=== PATIENT | male | born 1940 | race Caucasian/White ===

== ENCOUNTER 2016-07-06 13:14 | Observation (INO) ==
[2016-07-06 14:04] LABS: Basophils % 0.3 %; Eosinophils # 0.3 K/mcL (0.0-0.6); Eosinophils % 3.1 %; Hematocrit 37.9 % (37.5-50.1); Hemoglobin 12.9 g/dL (12.9-16.9); Immature Granulocytes % 0.5 % (0-4); Lymphocytes # 1.5 K/mcL (0.6-4.6); Lymphocytes % 15.2 %; Mean Corpuscular Hemoglobin 31.7 pg (28.0-33.3); Mean Corpuscular Volume 93.1 fL (83.0-100.0); Mean Platelet Volume 9.5 fL (9.4-12.4); Monocytes # 0.9 K/mcL (0.0-1.3); Monocytes % 9.5 %; Neutrophils # 7.1 K/mcL (1.6-8.9); Platelet Count 258 K/mcL (140-400); Red Blood Count 4.07 M/mcL (4.19-5.50); Segmented Neutrophils % 71.4 %
[2016-07-06 14:14] LABS: BUN/Creatinine Ratio 16 (6-26); Blood Urea Nitrogen 16 mg/dL (8-26); Calcium 9.6 mg/dL (8.6-10.8); Carbon Dioxide 25 mEq/L (19-29); Chloride 93 mEq/L (98-109); Glucose 113 mg/dL (70-99); Osmolality,Calculated 270 (280-300); Potassium 4.2 mEq/L (3.5-4.5); Sodium 129 mEq/L (136-145); eGFR For African Americans > 60 (> 60); eGFR For Non-African Americans > 60 (> 60)
--- NOTE | 2016-07-06 15:14 | Emergency Department Note ---
Disposition Clinical Impression: Chest pain, Dyspnea Disposition: Admitted As Inpatient Condition: Good General Adult HPI - General Chief complaint: ED Shortness of Breath/Dyspnea Stated complaint: high blood pressure, LELO,nausea Time Seen by Provider: 07/06/16 15:10 Source: patient, family Limitations: no limitations - History of Present Illness Pain Scale: 0 - Related Data Home Medications Medication Instructions Recorded Confirmed Albuterol Sulfate [Ventolin Hfa] 2 puff IH Q4-6H PRN 02/25/15 07/06/16 Allopurinol [Zyloprim] 300 mg PO BID 02/25/15 07/06/16 Finasteride [Proscar] 5 mg PO DAILY 02/25/15 07/06/16 Fluticasone Propionate Nasal 2 spray NS DAILY 02/25/15 07/06/16 [Flonase] Fluticasone/Salmeterol [Advair 1 each IH BID 02/25/15 07/06/16 500-50 Diskus] Ipratropium/Albuterol Neb [Duoneb] 3 ml IH Q6HR PRN 02/25/15 07/06/16 Isosorbide MONOnitrate (24 HR) 60 mg PO QPM 02/25/15 07/06/16 [Imdur] Nitroglycerin 0.4 mg SL Q5MIN PRN 02/25/15 07/06/16 Simvastatin [Zocor] 40 mg PO HS 02/25/15 07/06/16 Amlodipine Besylate 2.5 mg PO QPM 07/06/16 07/06/16 Aspirin [Ecotrin] 325 mg PO DAILY 07/06/16 07/06/16 Desloratadine [Desloratadine] 5 mg PO DAILY 07/06/16 07/06/16 Lisinopril [Zestril] 10 mg PO QAM 07/06/16 07/06/16 Metoprolol Succinate 100 mg PO QPM 07/06/16 07/06/16 Allergies Allergy/AdvReac Type Severity Reaction Status Date / Time No Known Allergies Allergy Verified 07/06/16 13:27 Past Medical History - Past Medical History Medical history: Reports: COPD, coronary artery disease, hyperlipidemia, hypertension, other Surgical history: Reports: coronary bypass (CABG) Psychiatric history: Reports: depression - Social History Smoking Status: Former smoker Smokeless Tobacco Status: No Alcohol use: Reports: occasionally Drug use: Reports: none Physical Exam - General Limitations: no limitations General appearance: alert Course Vital Signs Temperature 97.9 F 07/06/16 13:23 Pulse Rate 74 07/06/16 13:23 Respiratory Rate 20 07/06/16 13:23 Blood Pressure 170/80 07/06/16 13:23 O2 Sat by Pulse Oximetry 97 07/06/16 13:23 Temperature 97.7 F 07/06/16 23:33 Pulse Rate 57 07/06/16 23:33 Respiratory Rate 16 07/06/16 23:33 Blood Pressure 165/79 07/06/16 23:33 O2 Sat by Pulse Oximetry 100 07/06/16 23:33 Oxygen Delivery Oxygen Delivery Nasal Cannula Medical Decision Making - Lab Data Result diagrams: 07/06/16 13:38 07/06/16 13:38 Lab Results 07/06/16 07/06/16 07/06/16 Range/Units 13:38 13:38 13:38 WBC 9.9 (4.3-11.1) K/mcL RBC 4.07 L (4.19-5.50) M/mcL Hgb 12.9 (12.9-16.9) g/dL Hct 37.9 (37.5-50.1) % MCV 93.1 (83.0-100.0) fL MCH 31.7 (28.0-33.3) pg MCHC 34.0 (31.6-35.5) g/dL RDW 12.0 (11.5-14.5) % Plt Count 258 (140-400) K/mcL MPV 9.5 (9.4-12.4) fL Immature Gran % 0.5 (0-4) % Seg Neutrophils % 71.4 % Lymphocytes % 15.2 % Monocytes % 9.5 % Eosinophils % 3.1 % Basophils % 0.3 % Neutrophils # 7.1 (1.6-8.9) K/mcL Lymphocytes # 1.5 (0.6-4.6) K/mcL Monocytes # 0.9 (0.0-1.3) K/mcL Eosinophils # 0.3 (0.0-0.6) K/mcL Basophils # 0.0 (0.0-0.2) K/mcL Sodium 129 L (136-145) mEq/L Potassium 4.2 (3.5-4.5) mEq/L Chloride 93 L (98-109) mEq/L Carbon Dioxide 25 (19-29) mEq/L BUN 16 (8-26) mg/dL Creatinine 1.02 (0.72-1.25) mg/dL Est GFR ( Amer) > 60 (> 60) Est GFR (Non-Af Amer) > 60 (> 60) BUN/Creatinine Ratio 16 (6-26) Glucose 113 H (70-99) mg/dL Calculated Osmolality 270 L (280-300) Calcium 9.6 (8.6-10.8) mg/dL Troponin I 0.02 (0-0.03) ng/mL B-Natriuretic Peptide (0-100) pg/mL 07/06/16 Range/Units 13:38 WBC (4.3-11.1) K/mcL RBC (4.19-5.50) M/mcL Hgb (12.9-16.9) g/dL Hct (37.5-50.1) % MCV (83.0-100.0) fL MCH (28.0-33.3) pg MCHC (31.6-35.5) g/dL RDW (11.5-14.5) % Plt Count (140-400) K/mcL MPV (9.4-12.4) fL Immature Gran % (0-4) % Seg Neutrophils % % Lymphocytes % % Monocytes % % Eosinophils % % Basophils % % Neutrophils # (1.6-8.9) K/mcL Lymphocytes # (0.6-4.6) K/mcL Monocytes # (0.0-1.3) K/mcL Eosinophils # (0.0-0.6) K/mcL Basophils # (0.0-0.2) K/mcL Sodium (136-145) mEq/L Potassium (3.5-4.5) mEq/L Chloride (98-109) mEq/L Carbon Dioxide (19-29) mEq/L BUN (8-26) mg/dL Creatinine (0.72-1.25) mg/dL Est GFR ( Amer) (> 60) Est GFR (Non-Af Amer) (> 60) BUN/Creatinine Ratio (6-26) Glucose (70-99) mg/dL Calculated Osmolality (280-300) Calcium (8.6-10.8) mg/dL Troponin I (0-0.03) ng/mL B-Natriuretic Peptide 536 H (0-100) pg/mL Attestation Statement - Attestation Attestation: I examined this patient and my medical decision-making was reviewed with the LIDAR SCIENTIST/PA/Advanced Practice Nurse/Resident Physician. I agree with the documented findings, disposition and treatment plan as described except to the extent set forth below. [id number] time provided Patient complains of hypertension. He has a history of chronic hypertension. He has been compliant with his medications. He also notes dyspnea in the setting of home oxygen dependency. The daughter also notes he has been "jittery." The patient required assistance to transfer from the wheelchair to the bed. He appears in no acute respiratory distress. Labs and EKG reviewed by me
--- NOTE | 2016-07-06 15:50 | Emergency Department Note ---
Disposition Clinical Impression: Chest pain Qualifiers: Chest pain type: unspecified Qualified Code(s): R07.9 - Chest pain, unspecified Dyspnea Qualifiers: Dyspnea type: unspecified Qualified Code(s): R06.00 - Dyspnea, unspecified Disposition: Admitted As Inpatient Condition: Good Referrals: Bhavani King CNP [Primary Care Provider] - Forms: ED Satisfaction Letter General Adult HPI - General Chief complaint: ED Shortness of Breath/Dyspnea Stated complaint: high blood pressure, LELO,nausea Time Seen by Provider: 07/06/16 15:10 Source: patient, family Limitations: no limitations Nursing Notes Reviewed: Yes Vital Signs Reviewed: Yes - History of Present Illness HPI Narrative: Patient here for evaluation of dyspnea and chest pain. Patient states that he started feeling "bad" beginning on Tuesday with described heaviness in the chest as well as in the pit of his stomach. This is continued into today and been associated with shortness of breath and nausea. Patient has been monitoring his blood pressures over the last several days with blood pressures elevating to 201/91. He states that his lisinopril which had been 10 mg of the last year had been 5 mg until 2 days previously because he was taking an old prescription unintentionally. Former smoker. Quit in the s. COPD on 2 L of home oxygen [place] in 1995 requiring single bypass and has been followed continuously by Dr. Dangelo with last left heart catheter approximately 1-1/2 years ago. Pain Scale: 5 - Related Data Home Medications Medication Instructions Recorded Confirmed Albuterol Sulfate [Ventolin Hfa] 2 puff IH Q4-6H PRN 02/25/15 07/06/16 Allopurinol [Zyloprim] 300 mg PO BID 02/25/15 07/06/16 Finasteride [Proscar] 5 mg PO DAILY 02/25/15 07/06/16 Fluticasone Propionate Nasal 2 spray NS DAILY 02/25/15 07/06/16 [Flonase] Fluticasone/Salmeterol [Advair 1 each IH BID 02/25/15 07/06/16 500-50 Diskus] Ipratropium/Albuterol Neb [Duoneb] 3 ml IH Q6HR PRN 02/25/15 07/06/16 Isosorbide MONOnitrate (24 HR) 60 mg PO QPM 02/25/15 07/06/16 [Imdur] Nitroglycerin 0.4 mg SL Q5MIN PRN 02/25/15 07/06/16 Simvastatin [Zocor] 40 mg PO HS 02/25/15 07/06/16 Amlodipine Besylate 2.5 mg PO QPM 07/06/16 07/06/16 Aspirin [Ecotrin] 325 mg PO DAILY 07/06/16 07/06/16 Desloratadine [Desloratadine] 5 mg PO DAILY 07/06/16 07/06/16 Lisinopril [Zestril] 10 mg PO QAM 07/06/16 07/06/16 Metoprolol Succinate 100 mg PO QPM 07/06/16 07/06/16 Allergies Allergy/AdvReac Type Severity Reaction Status Date / Time No Known Allergies Allergy Verified 07/06/16 13:27 All systems ED: reviewed and negative except as stated. Constitutional: Denies: fever, chills Eyes: Denies: eye pain Cardiovascular: Reports: chest pain, dyspnea on exertion Respiratory: Reports: dyspnea Gastrointestinal: Reports: nausea Past Medical History - Past Medical History Medical history: Reports: COPD, coronary artery disease, hyperlipidemia, hypertension, other Surgical history: Reports: coronary bypass (CABG) Psychiatric history: Reports: depression - Social History Smoking Status: Former smoker Smokeless Tobacco Status: No Alcohol use: Reports: occasionally Drug use: Reports: none Physical Exam - General Limitations: no limitations General appearance: alert - Head Head exam: atraumatic, normocephalic - Eye Eye exam: Present: normal appearance - ENT ENT exam: normal exam, normal oropharynx - Neck Neck exam: Present: normal inspection - Chest Chest inspection: Present: normal inspection, symmetric chest wall rise. Absent : tenderness - Respiratory Respiratory exam: Present: other (rales). Absent: respiratory distress - Cardiovascular Cardiovascular exam: Present: regular rate, normal rhythm - Abdominal Exam Abdominal exam: Present: soft, Non-Tender - Extremities Exam Extremities exam: Present: normal inspection. Absent: tenderness, pedal edema - Neurological Exam Neurological exam: Present: alert, oriented X3. Absent: motor sensory deficit - Psychiatric Psychiatric exam: Present: normal affect, normal mood - Skin Skin exam: Present: warm, dry Course Course Narrative: Patient with chest heaviness and exertional dyspnea in the setting of lateral EKG changes consisting of depressions approximately 1 mm and 1, aVL, V5, V6. This time there is no evidence of pneumonia or infectious cause. Patient will be given sublingual nitroglycerin to evaluate for response as well as to decrease blood pressure. Patient will be admitted to the hospital service - Reevaluation(s) Reevaluation #1: Pressure resolved after nitroglycerin and EKG changes partially resolved on repeat with depression remaining in v5 and V6 as well as T-wave changes in inferior leads.. - Consultations Consultation #1: Dr. Camp, cardiology consulted. Chest pressure resolved with nitro. Hold anticoagulation at this point. If pressure returns or troponin is elevated, anticoagulation can be initiated at this time. Consultation #2: Discussed with hospitalist. Pt accepted pending cardiology consult and nitro trial. Vital Signs Temperature 97.9 F 07/06/16 13:23 Pulse Rate 74 07/06/16 13:23 Respiratory Rate 20 07/06/16 13:23 Blood Pressure 170/80 07/06/16 13:23 O2 Sat by Pulse Oximetry 97 07/06/16 13:23 Temperature 97.9 F 07/06/16 13:23 Pulse Rate 58 07/06/16 16:52 Respiratory Rate 18 07/06/16 16:52 Blood Pressure 173/84 07/06/16 16:52 O2 Sat by Pulse Oximetry 95 07/06/16 16:52 Oxygen Delivery Oxygen Delivery Nasal Cannula Medical Decision Making - Medical Records Medical records reviewed: Yes I reviewed the patient's medical records. - Lab Data Lab results reviewed: Yes I reviewed the patient's lab results. Result diagrams: 07/06/16 13:38 07/06/16 13:38 Lab Results 07/06/16 07/06/16 07/06/16 Range/Units 13:38 13:38 13:38 WBC 9.9 (4.3-11.1) K/mcL RBC 4.07 L (4.19-5.50) M/mcL Hgb 12.9 (12.9-16.9) g/dL Hct 37.9 (37.5-50.1) % MCV 93.1 (83.0-100.0) fL MCH 31.7 (28.0-33.3) pg MCHC 34.0 (31.6-35.5) g/dL RDW 12.0 (11.5-14.5) % Plt Count 258 (140-400) K/mcL MPV 9.5 (9.4-12.4) fL Immature Gran % 0.5 (0-4) % Seg Neutrophils % 71.4 % Lymphocytes % 15.2 % Monocytes % 9.5 % Eosinophils % 3.1 % Basophils % 0.3 % Neutrophils # 7.1 (1.6-8.9) K/mcL Lymphocytes # 1.5 (0.6-4.6) K/mcL Monocytes # 0.9 (0.0-1.3) K/mcL Eosinophils # 0.3 (0.0-0.6) K/mcL Basophils # 0.0 (0.0-0.2) K/mcL Sodium 129 L (136-145) mEq/L Potassium 4.2 (3.5-4.5) mEq/L Chloride 93 L (98-109) mEq/L Carbon Dioxide 25 (19-29) mEq/L BUN 16 (8-26) mg/dL Creatinine 1.02 (0.72-1.25) mg/dL Est GFR ( Amer) > 60 (> 60) Est GFR (Non-Af Amer) > 60 (> 60) BUN/Creatinine Ratio 16 (6-26) Glucose 113 H (70-99) mg/dL Calculated Osmolality 270 L (280-300) Calcium 9.6 (8.6-10.8) mg/dL Troponin I 0.02 (0-0.03) ng/mL B-Natriuretic Peptide (0-100) pg/mL 07/06/16 Range/Units 13:38 WBC (4.3-11.1) K/mcL RBC (4.19-5.50) M/mcL Hgb (12.9-16.9) g/dL Hct (37.5-50.1) % MCV (83.0-100.0) fL MCH (28.0-33.3) pg MCHC (31.6-35.5) g/dL RDW (11.5-14.5) % Plt Count (140-400) K/mcL MPV (9.4-12.4) fL Immature Gran % (0-4) % Seg Neutrophils % % Lymphocytes % % Monocytes % % Eosinophils % % Basophils % % Neutrophils # (1.6-8.9) K/mcL Lymphocytes # (0.6-4.6) K/mcL Monocytes # (0.0-1.3) K/mcL Eosinophils # (0.0-0.6) K/mcL Basophils # (0.0-0.2) K/mcL Sodium (136-145) mEq/L Potassium (3.5-4.5) mEq/L Chloride (98-109) mEq/L Carbon Dioxide (19-29) mEq/L BUN (8-26) mg/dL Creatinine (0.72-1.25) mg/dL Est GFR ( Amer) (> 60) Est GFR (Non-Af Amer) (> 60) BUN/Creatinine Ratio (6-26) Glucose (70-99) mg/dL Calculated Osmolality (280-300) Calcium (8.6-10.8) mg/dL Troponin I (0-0.03) ng/mL B-Natriuretic Peptide 536 H (0-100) pg/mL - Radiology Data Radiology results reviewed: Yes I reviewed the patient's radiology results. - EKG Data EKG #1 EKG attestation: Yes I reviewed and interpreted this EKG. EKG results narrative: EKG shows sinus rhythm with first-degree AV block. Patient has a ventricular rate of 69 bpm. CA interval 246. QRS 107. QTC 404. Patient has no significant ST elevations. Patient does have significant depressions in the lateral leads including 1, aVL, V5, V6. Patient has associated inferior lead T- wave changes. All compared to 02/26/15.
[2016-07-06] MEDS: Nitroglycerin 0.4 MG TAB.SUBL SL PRN ×3 (16:19→16:32)
[2016-07-06] MEDS ORDERED: Ondansetron 4 MG/2 ML VIAL IVP ONE (16:21)
[2016-07-06] MEDS ORDERED: Nitroglycerin 1 INCH/GM PACKET TP ONE (17:00)
[2016-07-06] MEDS ORDERED: 0.9 % Sodium Chloride 1,000 ML IV ONE (17:02)
[2016-07-06] MEDS ORDERED: Aspirin 81 MG TAB.CHEW PO ONE (17:04)
[2016-07-06] MEDS ORDERED: Ondansetron 4 MG/2 ML VIAL IVP PRN (17:42)
[2016-07-06] MEDS ORDERED: Naloxone 0.4 MG/ML INJ IVP PRN (17:42)
[2016-07-06] MEDS ORDERED: Acetaminophen 325 MG TABLET PO PRN (17:42)
[2016-07-06] MEDS ORDERED: Ipratropium/Albuterol Neb 3 ML IH PRN (18:53)
[2016-07-06] MEDS ORDERED: Nitroglycerin 25 MG/250 ML INFUS..BTL IVC SCH (19:00)
--- NOTE | 2016-07-06 19:03 | Internal Med History&Physical ---
Date of Encounter: 07/06/16 Time of Encounter: 18:58 Assessment and Plan (1) Hypertensive urgency Current visit: Yes Status: Acute Likely contributing to symptoms. Systolic Blood pressure and emergency room running between 150 and 180 mmHg. We will start the patient on nitroglycerin drip. Continue home blood pressure medications. Check renal Doppler. Add a diuretic cause of uncontrolled hypertension. Patient is hyponatremia can his sodium has to be monitored while he is on a diuretic on discharge (2) COPD (chronic obstructive pulmonary disease) Current visit: Yes Status: Acute Stable no active wheezing. Qualifiers: Qualified Code(s): J44.9 - Chronic obstructive pulmonary disease, unspecified (3) Epigastric pain Current visit: Yes Status: Acute Patient is having EKG changes in the form of infero lateral ST segment depression 1 mm. He will be started on nitroglycerin drip. Cardiology service has been contacted and would like to load of heparin drip for now as the patient is pain-free and EKG changes resolved with nitro. If the patient has a recurrence of pain or elevated troponin heparin drip will be started. Appreciate cardiology service recommendations. Patient is denying any GI bleeding. Hemoglobin at baseline. Internal Medicine - H&P: HPI Chief complaint: htn, nausea and epigastric pain History of present illness: Mr. Heck is a 76 year old male with multiple medical problems including coronary artery disease status post cabg in 1995, who had a coronary angiogram one and a half year ago which showed paten GA to LAD presents to emergency room today with a main complain of nausea and upper abdominal discomfort. On Tuesday patient has not been feeling well, noted that he feels nauseous fatigued and more short of breath then usual, especially with exertion. Today patient has checked his blood pressure multiple times and chi continuously elevated. He has been feeling nauseous in addition to discomfort in his epigastric area. He has been more short of breath then usual. He denied any chest pain. He denies any hematemesis melena or hematochezia. He has COPD on 2 L of oxygen but denies any increase cough sputum production. No fevers chills. And emergency room patient systolic blood pressure was constantly elevated up to 180 systolic. Past Med Surg Social Fam HX - Past Medical History Medical history: COPD, coronary artery disease, hyperlipidemia, hypertension, other Psychiatric history: depression - Past Surgical History Surgical History: coronary bypass (CABG) - Social History Smoking Status: Former smoker Smokeless Tobacco Status: No Alcohol use: occasionally Drug use: none Internal Medicine - H&P: Meds Albuterol Sulfate [Ventolin Hfa] 2 puff IH Q4-6H PRN 02/25/15 [History] Allopurinol [Zyloprim] 300 mg PO BID 02/25/15 [History] Finasteride [Proscar] 5 mg PO DAILY 02/25/15 [History] Fluticasone Propionate Nasal [Flonase] 2 spray NS DAILY 02/25/15 [History] Fluticasone/Salmeterol [Advair 500-50 Diskus] 1 each IH BID 02/25/15 [History] Ipratropium/Albuterol Neb [Duoneb] 3 ml IH Q6HR PRN 02/25/15 [History] Isosorbide MONOnitrate (24 HR) [Imdur] 60 mg PO QPM 02/25/15 [History] Nitroglycerin 0.4 mg SL Q5MIN PRN 02/25/15 [History] Simvastatin [Zocor] 40 mg PO HS 02/25/15 [History] Amlodipine Besylate 2.5 mg PO QPM 07/06/16 [History] Aspirin [Ecotrin] 325 mg PO DAILY 07/06/16 [History] Desloratadine [Desloratadine] 5 mg PO DAILY 07/06/16 [History] Lisinopril [Zestril] 10 mg PO QAM 07/06/16 [History] Metoprolol Succinate 100 mg PO QPM 07/06/16 [History] Allergies No Known Allergies Allergy (Verified 07/06/16 13:27) All Systems PM: A 10-system review of systems was performed and is negative for pertinent findings except as documented above in the HPI. Review of systems: 10 point review of systems is negative except for HPI - Constitutional Vitals: Temp Pulse Resp BP Pulse Ox 97.9 F 57 18 179/92 95 07/06/16 13:23 07/06/16 17:05 07/06/16 17:30 07/06/16 17:30 07/06/16 16:52 Exam: Gen.: patient is alert and oriented times 3 not in distress. Cardiac: normal S1 S2 no additional sounds or murmur. Chest: Clear auscultation bilaterally abdomen: soft nontender nondistended normal bowel sounds no focal neurological deficits lower extremity lax calf muscles no swelling Internal Med - H&P Results - Labs CBC & Chem 7: 07/06/16 13:38 07/06/16 13:38
[2016-07-06] MEDS ORDERED: Budesonide/Formoterol 160/4.5 MDI IH SCH (22:00)
[2016-07-07] MEDS: *HR* Enoxaparin 40 MG/0.4 ML SYRINGE SQ SCH (06:22)
[2016-07-07 06:23] LABS: Basophils % 0.4 %; Eosinophils # 0.2 K/mcL (0.0-0.6); Eosinophils % 3.3 %; Hematocrit 35.6 % (37.5-50.1); Hemoglobin 12.1 g/dL (12.9-16.9); Immature Granulocytes % 0.4 % (0-4); Lymphocytes # 1.6 K/mcL (0.6-4.6); Lymphocytes % 23.1 %; Mean Corpuscular Hemoglobin 31.8 pg (28.0-33.3); Mean Corpuscular Volume 93.4 fL (83.0-100.0); Mean Platelet Volume 9.7 fL (9.4-12.4); Monocytes # 0.8 K/mcL (0.0-1.3); Monocytes % 11.9 %; Neutrophils # 4.3 K/mcL (1.6-8.9); Platelet Count 219 K/mcL (140-400); Red Blood Count 3.81 M/mcL (4.19-5.50); Red Cell Distribution Width 12.1 % (11.5-14.5); Segmented Neutrophils % 60.9 %
[2016-07-07 06:36] LABS: BUN/Creatinine Ratio 18 (6-26); Blood Urea Nitrogen 18 mg/dL (8-26); Calcium 9.1 mg/dL (8.6-10.8); Carbon Dioxide 25 mEq/L (19-29); Chloride 97 mEq/L (98-109); Chol/HDL Ratio 2.1 (0-4.9); Cholesterol 175 mg/dL (< 200); Glucose 78 mg/dL (70-99); HDL Cholesterol 85 mg/dL (40-59); LDL Cholesterol,Calculated 74 mg/dL (0-99); Magnesium 1.4 mg/dL (1.6-2.6); Osmolality,Calculated 277 (280-300); Phosphorous 3.5 mg/dL (2.3-4.7); Potassium 4.5 mEq/L (3.5-4.5); Sodium 133 mEq/L (136-145); Triglycerides 80 mg/dL (< 150); eGFR For African Americans > 60 (> 60); eGFR For Non-African Americans > 60 (> 60)
[2016-07-07] MEDS: Finasteride 5 MG TABLET PO SCH (09:03)
[2016-07-07] MEDS: Aspirin Enteric Coated 325 MG Tablet PO SCH (09:03)
[2016-07-07] MEDS: Fluticasone Propionate Nasal 50 MCG/SPRAY BOTTLE NS SCH (09:03)
[2016-07-07] MEDS ORDERED: amLODIPine 5 MG TABLET PO SCH (09:15)
--- NOTE | 2016-07-07 10:13 | Internal Med Progress Note ---
<Ray Coreas - Last Filed: 07/07/16 10:57> Date of Encounter: 07/07/16 Time of Encounter: 09:48 - Assessment and plan (1) Chest pain Current Visit: Yes Status: Resolved Assessment and plan: 76 y/o M hx of ND in 1965 and s/p CABG single vessel, C 02/2015 shows patent bypass graft GA to LAD, Echo 2014 EF is 35-40%. Patient presented with hypertensive urgery BP of 200/90. -intial ST depressions in leads 1,avL,V5,V6 improved with nitroglycerin. Troponin 0.02,0.02,.0.03 -patient on aspirin statin and b-toni, nitro drip, lisinopril -CP resolved after nitro administration -BP currently 164/75 -Plan is to restart home amlodipine and imdur and wean off nitro drip, repeat echo, renal US ordered -cardiology input appreciated Qualifiers: Chest pain type: unspecified Qualified Code(s): R07.9 - Chest pain, unspecified (2) Hypertensive urgency Current Visit: Yes Status: Acute Assessment and plan: Patient presented with BP systolic 180. Stated at home BP was systolic 200. He was started on nitroglycerin drip. -Current BP is 160/70. We have restarted lisinopril and amlodipine. Will wean off of nitro drip with BP goal of 140/90. Will restart imdur after nitro drip is weaned. (3) COPD (chronic obstructive pulmonary disease) Current Visit: Yes Status: Chronic Assessment and plan: hx of COPD, former smoker. patient on 2L O2 at home. Continue home symbicort and oxygen supplementation. Patient denies sob, cough. Qualifiers: COPD type: emphysema Emphysema type: unspecified Qualified Code(s): J43.9 - Emphysema, unspecified (4) DVT prophylaxis Current Visit: No Status: Acute (5) Hyperlipidemia Current Visit: No Status: Chronic Assessment and plan: hx of HLD, continue home simvastatin. LDL is 74. Qualifiers: Hyperlipidemia type: pure hypercholesterolemia Qualified Code(s): E78.00 - Pure hypercholesterolemia, unspecified; E78.0 - Pure hypercholesterolemia - Subjective Interval history: 76 y/o M hx of single bypass 1995, ND 1995, CAD, HLD, COPD, former smoker HTN presented with cc of hypertension. Patient blood pressure for the past few days was 201/90. He takes lisinopril, and amlodipine for BP control. However, patient ran out of his lisinopril and started using an old prescription of lisinopril 5mg. Initial EKG showed depressions 1mm in leads 1,aVL,V5,V6. He was given nitroglycerin SL. BP resolved after nitroglycerin and repeat EKG showed resolutionof depressions except in V5 and V6 and t-wave changes in inferior leads. Cardiology recommended holding anticoagulation as CP resolved with nitro and troponin were normal. Patient was started on nitro drip and home medications lisinopril for BP control. During my visit, patient does not have any chest pain, nausea. His BP is 160s systolic currently - Constitutional Vitals: Temp Pulse Resp BP Pulse Ox 97.9 F 63 16 164/75 100 07/07/16 07:08 07/07/16 07:08 07/07/16 07:08 07/07/16 07:08 07/07/16 07:08 General appearance: Present: A&O X 3, answers questions appropriately - Head Head exam: Present: atraumatic, normocephalic - Eye Eye exam: Present: PERRL, conjuntiva pink, sclera anicteric - Neck Neck exam general surgery: Present: supple, trachea midline. Absent: lymphadenopathy - Respiratory Respiratory exam: Present: CTAB. Absent: accessory muscle use, rales, rhonchi, wheezes - Cardiovascular Cardiovascular exam: Present: RRR, +S1, +S2. Absent: diastolic murmur, gallop, rubs, systolic murmur - GI/Abdominal GI/Abdominal exam: Present: normal bowel sounds, soft, no peritoneal signs. Absent: distended, tenderness - Extremities Exam Extremities exam: Present: warm, radial pulses palpable and symetrical. Absent : calf tenderness, cyanotic, pedal edema - Neurological Exam Neurological exam: Present: CN II-XII intact, oriented X3, no focal deficits. Absent: pronater drift, facial droop, speech deficit - Skin Skin exam: Present: dry, intact Internal Medicine: Result - Labs CBC & Chem 7: 07/07/16 04:59 07/07/16 04:59 Labs: Short CBC 07/07/16 Range/Units 04:59 WBC 7.1 (4.3-11.1) K/mcL Hgb 12.1 L (12.9-16.9) g/dL Hct 35.6 L (37.5-50.1) % Plt Count 219 (140-400) K/mcL Neutrophils # 4.3 (1.6-8.9) K/mcL BMP 07/07/16 04:59 Sodium 133 L Potassium 4.5 Chloride 97 L Carbon Dioxide 25 BUN 18 Creatinine 1.00 Glucose 78 Calcium 9.1 Cardiac Enzymes 07/06/16 07/07/16 Range/Units 19:45 04:59 Troponin I 0.02 0.02 (0-0.03) ng/mL Consult Discharge Plan - Plan Referrals: Bhavani King, [employer] [Primary Care Provider] - <Jomar Wilsno - Last Filed: 07/07/16 14:15> Date of Encounter: 07/07/16 - Assessment and plan (1) Hypertensive urgency Current Visit: Yes Status: Acute (2) Chest pain Current Visit: Yes Status: Resolved Qualifiers: Chest pain type: precordial pain Qualified Code(s): R07.2 - Precordial pain (3) Chronic respiratory failure with hypoxia Current Visit: Yes Status: Chronic (4) COPD (chronic obstructive pulmonary disease) Current Visit: Yes Status: Acute Qualifiers: COPD type: emphysema Emphysema type: unspecified Qualified Code(s): J43.9 - Emphysema, unspecified (5) Hyperlipidemia Current Visit: No Status: Chronic Qualifiers: Hyperlipidemia type: pure hypercholesterolemia Qualified Code(s): E78.00 - Pure hypercholesterolemia, unspecified; E78.0 - Pure hypercholesterolemia (6) CAD (coronary artery disease) Current Visit: Yes Status: Chronic Qualifiers: Coronary Disease-Associated Artery/Lesion type: [place] artery [place] vs. transplanted heart: [place] heart Associated angina: without angina Qualified Code(s): I25.10 - Atherosclerotic heart disease of [place] coronary artery without angina pectoris (7) Chronic systolic (congestive) heart failure Current Visit: Yes Status: Chronic - Constitutional Vitals: Temp Pulse Resp BP Pulse Ox 98.4 F 67 16 161/100 100 07/07/16 12:05 07/07/16 12:05 07/07/16 12:05 07/07/16 12:05 07/07/16 12:05 Internal Medicine: Result - Labs CBC & Chem 7: 07/07/16 04:59 07/07/16 04:59 Labs: Short CBC 07/07/16 Range/Units 04:59 WBC 7.1 (4.3-11.1) K/mcL Hgb 12.1 L (12.9-16.9) g/dL Hct 35.6 L (37.5-50.1) % Plt Count 219 (140-400) K/mcL Neutrophils # 4.3 (1.6-8.9) K/mcL BMP 07/07/16 04:59 Sodium 133 L Potassium 4.5 Chloride 97 L Carbon Dioxide 25 BUN 18 Creatinine 1.00 Glucose 78 Calcium 9.1 Cardiac Enzymes 07/06/16 07/07/16 Range/Units 19:45 04:59 Troponin I 0.02 0.02 (0-0.03) ng/mL - Attending Attestation I examined this patient and my medical decision-making was reviewed with the Resident Physician on 07/07/16. I agree with the documented findings, disposition and treatment plan as described except to the extent set forth below. Mr Heck is currently in observation for hypertensive emergency. He is currently high risk due to potential for worsening cardiac, respiratory and neurologic issues. Mr. Heck feels OK at this time though his BP is still elevated and he is on nitro drip. He denies CP or worsening dyspnea currently. Appetite OK. No fever. Exam Alert. Comfortable Heart reg No wheeze No edema I/P 1. Hypertensive urgency - restart meds and wean off nitro as able. 2. Chest pain - appreciate cardiology input. 3. COPD with chronic hypoxic resp failure 4. CAD s/p ND and CABG Further diagnoses and plan as above.
[2016-07-07] MEDS: Furosemide 40 MG TABLET PO SCH (17:24)
[2016-07-07] MEDS ORDERED: Isosorbide MONOnitrate (24 HR) 60 MG TAB.ER.24H PO SCH (18:00)
[2016-07-07] MEDS ORDERED: AMLODIPINE BESYLATE 2.5 MG PO SCH (18:00)
[2016-07-07] MEDS ORDERED: Metoprolol XL (24 HR) Succ 50 MG TAB.ER.24H PO SCH (18:00)
[2016-07-08 05:18] LABS: Hematocrit 37.5 % (37.5-50.1); Hemoglobin 12.7 g/dL (12.9-16.9); Mean Corpuscular HGB Conc 33.9 g/dL (31.6-35.5); Mean Corpuscular Hemoglobin 32.1 pg (28.0-33.3); Mean Corpuscular Volume 94.7 fL (83.0-100.0); Platelet Count 201 K/mcL (140-400); Red Blood Count 3.96 M/mcL (4.19-5.50); Red Cell Distribution Width 11.9 % (11.5-14.5)
[2016-07-08 05:50] LABS: BUN/Creatinine Ratio 17 (6-26); Blood Urea Nitrogen 18 mg/dL (8-26); Calcium 9.4 mg/dL (8.6-10.8); Carbon Dioxide 23 mEq/L (19-29); Chloride 97 mEq/L (98-109); Glucose 90 mg/dL (70-99); Osmolality,Calculated 275 (280-300); Sodium 132 mEq/L (136-145); eGFR For African Americans > 60 (> 60); eGFR For Non-African Americans > 60 (> 60)
[2016-07-08 06:07] LABS: Potassium 4.4 mEq/L (3.5-4.5)
[2016-07-08] MEDS ORDERED: amLODIPine 5 MG TABLET PO SCH (06:51)
[2016-07-08] MEDS: *HR* Enoxaparin 40 MG/0.4 ML SYRINGE SQ SCH (06:57)
[2016-07-08] MEDS: Finasteride 5 MG TABLET PO SCH (07:56)
[2016-07-08] MEDS: Aspirin Enteric Coated 325 MG Tablet PO SCH (07:56)
[2016-07-08] MEDS: Furosemide 40 MG TABLET PO SCH (07:57)
[2016-07-08] MEDS: Fluticasone Propionate Nasal 50 MCG/SPRAY BOTTLE NS SCH (07:57)
[2016-07-08] MEDS ORDERED: Furosemide 40 MG TABLET PO SCH (09:00)
--- NOTE | 2016-07-08 09:17 | Discharge Summary ---
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 At home his blood pressure was measuring 201/90. Furthermore he had associated nausea, shortness of breath, chest pain. In the emergency room patient's EKG showed depressions of 1 mm in leads 1, aVL, V5, V6. He was given nitroglycerin sublingual which lowered his blood pressure to 160/80 and repeat EKG showed resolution of ST depressions. Cardiology was called by ER and recommended holding anticoagulation as CP had resolved with nitro and troponin were normal. He was started on nitro drip to control his BP. He was also started on aspirin, statin, bblocker, lisinopril. Patient denied CP, sob, dizziness, nauea. Next day patient BP still was elevated at 164/70s while on the nitro drip. Patient was started on Amlodipine 5mg and given one time dose of lasix 40mg. Next morning patient BP was 140/77 off of the nitroglycerin drip. His amlodipine was increased to 10mg. As patient BP was under control, he was stable for discharge. He should follow up with cardiology and PCP after discharge. Patient discharge BP medications include: lisinopril 10mg, amlodipine 10mg. Original Note: <Ray Coreas - Last Filed: 07/08/16 09:14> Date of Encounter: 07/08/16 Time of Encounter: 09:14 - Discharge Diagnosis (1) Chest pain Priority: Primary Status: Resolved Qualifiers: Chest pain type: precordial pain Qualified Code(s): R07.2 - Precordial pain (2) Hypertensive urgency Priority: Secondary Status: Resolved (3) COPD (chronic obstructive pulmonary disease) Priority: Secondary Status: Chronic Qualifiers: COPD type: emphysema Emphysema type: unspecified Qualified Code(s): J43.9 - Emphysema, unspecified (4) DVT prophylaxis Priority: Secondary Status: Acute (5) Hyperlipidemia Status: Chronic Qualifiers: Hyperlipidemia type: pure hypercholesterolemia Qualified Code(s): E78.00 - Pure hypercholesterolemia, unspecified; E78.0 - Pure hypercholesterolemia - Discharge Medications Prescriptions: Amlodipine [Norvasc] 10 mg PO DAILY #30 tablet Home Medications: Albuterol Sulfate [Ventolin Hfa] 2 puff IH Q4-6H PRN 02/25/15 [History] Allopurinol [Zyloprim] 300 mg PO BID 02/25/15 [History] Finasteride [Proscar] 5 mg PO DAILY 02/25/15 [History] Fluticasone Propionate Nasal [Flonase] 2 spray NS DAILY 02/25/15 [History] Fluticasone/Salmeterol [Advair 500-50 Diskus] 1 each IH BID 02/25/15 [History] Ipratropium/Albuterol Neb [Duoneb] 3 ml IH Q6HR PRN 02/25/15 [History] Isosorbide MONOnitrate (24 HR) [Imdur] 60 mg PO QPM 02/25/15 [History] Nitroglycerin 0.4 mg SL Q5MIN PRN 02/25/15 [History] Simvastatin [Zocor] 40 mg PO HS 02/25/15 [History] Aspirin [Ecotrin] 325 mg PO DAILY 07/06/16 [History] Desloratadine 5 mg PO DAILY 07/06/16 [History] Lisinopril [Zestril] 10 mg PO QAM 07/06/16 [History] Metoprolol Succinate 100 mg PO QPM 07/06/16 [History] Amlodipine [Norvasc] 10 mg PO DAILY #30 tablet 07/08/16 [Rx] Allergies/Adverse Reactions: Allergies No Known Allergies Allergy (Verified 07/06/16 13:27) Procedures/tests Complete & Pending: Procedures Performed prior 72 hours Category Date Time Status ECG 12 lead ECG [ECG] AM 0600 Y 07/07/16 06:00 Ordered ECG 12 lead ECG [ECG] Routine Y 07/06/16 16:39 Completed EV echocardiogram Routine Y 07/07/16 09:19 Completed Date of admission: 07/06/16 17:22 Primary care physician: Bhavani King CNP Discharging clinician: Ray Coreas Anticipated date of discharge: 07/08/16 - Patient Status Disposition: Home, Self-Care Condition: Good Functional capacity at discharge: uses cane/walker Overall status at discharge: patient is progressing back to baseline - Discharge Instructions Instructions: Heart Failure (DC), Chest Pain (DC), Chronic Obstructive Pulmonary Disease (DC), Chronic Hypertension (DC) Follow Up With: Bhavani King CNP [Primary Care Provider] - 07/13/16 11:00 am Gurvinder Dangelo MD [Partnered Physician] - 07/21/16 (Keep follow up appaointment as scheduled) - Diet and Activity Activity: increase activity as tolerated, wear oxygen at all times Diet: low fat, low cholesterol, low salt diet Hospital course: Mr. Heck is a 76 year old male - Time Spent with Patient Total time spent providing and/or coordinating discharge services: - Constitutional Vitals: Temp Pulse Resp BP Pulse Ox 97.9 F 72 16 167/96 92 L 07/08/16 07:00 07/08/16 07:00 07/08/16 07:00 07/08/16 07:00 07/08/16 07:00 General appearance: Present: A&O X 3, answers questions appropriately - Head Head exam: Present: atraumatic, normocephalic - Eye Eye exam: Present: PERRL, conjuntiva pink, sclera anicteric Pupils: Present: PERRL - Neck Neck exam general surgery: Present: supple, trachea midline. Absent: lymphadenopathy - Respiratory Respiratory exam: Present: CTAB. Absent: accessory muscle use, rales, rhonchi, wheezes - Cardiovascular Cardiovascular exam: Present: RRR, +S1, +S2. Absent: diastolic murmur, gallop, rubs, systolic murmur - GI/Abdominal GI/Abdominal exam: Present: normal bowel sounds, soft, no peritoneal signs. Absent: distended, tenderness - Extremities Exam Extremities exam: Present: warm, radial pulses palpable and symetrical. Absent : calf tenderness, cyanotic, pedal edema - Neurological Exam Neurological exam: Present: CN II-XII intact, oriented X3, no focal deficits. Absent: pronater drift, facial droop, speech deficit - Skin Skin exam: Present: dry, intact <Jomar Wilson - Last Filed: 07/08/16 12:53> Date of Encounter: 07/08/16 - Discharge Diagnosis (1) Hypertensive urgency Status: Resolved (2) Chest pain Status: Resolved Qualifiers: Chest pain type: precordial pain Qualified Code(s): R07.2 - Precordial pain (3) Chronic respiratory failure with hypoxia Priority: Secondary Status: Chronic (4) COPD (chronic obstructive pulmonary disease) Priority: Secondary Status: Acute Qualifiers: COPD type: emphysema Emphysema type: unspecified Qualified Code(s): J43.9 - Emphysema, unspecified (5) Hyperlipidemia Priority: Secondary Status: Chronic Qualifiers: Hyperlipidemia type: pure hypercholesterolemia Qualified Code(s): E78.00 - Pure hypercholesterolemia, unspecified; E78.0 - Pure hypercholesterolemia (6) CAD (coronary artery disease) Priority: Secondary Status: Chronic Qualifiers: Coronary Disease-Associated Artery/Lesion type: [place] artery [place] vs. transplanted heart: [place] heart Associated angina: without angina Qualified Code(s): I25.10 - Atherosclerotic heart disease of [place] coronary artery without angina pectoris (7) Chronic systolic (congestive) heart failure Priority: Secondary Status: Chronic Procedures/tests Complete & Pending: Procedures Performed prior 72 hours Category Date Time Status ECG 12 lead ECG [ECG] AM 0600 Y 07/07/16 06:00 Ordered ECG 12 lead ECG [ECG] Routine Y 07/06/16 16:39 Completed EV echocardiogram Routine Y 07/07/16 09:19 Completed Date of admission: 07/06/16 17:22 Primary care physician: Bhavani King CNP Hospital course: Mr. Heck is a 76 year old male - Time Spent with Patient Total time spent providing and/or coordinating discharge services: 36min - Constitutional Vitals: Temp Pulse Resp BP Pulse Ox 97.8 F 71 16 164/86 98 07/08/16 11:09 07/08/16 11:09 07/08/16 11:09 07/08/16 11:09 07/08/16 11:09 - Attending Attestation I examined this patient and my medical decision-making was reviewed with the Resident Physician on 07/08/16. I agree with the documented findings, disposition and treatment plan as described except to the extent set forth below. Mr Heck feels better today. His blood pressure is better controlled. He wants to go home. Exam Alert. Comfortable. Heart reg Lungs no wheeze No edema I/P 1. Hypertensive urgency resolved 2. Chest pain resolved 3. COPD 4. HLD Further diagnoses and plan as above. D/C today.
--- NOTE | 2016-07-08 09:21 | ECHO - Doppler Report ---
Echocardiogram Name: William Heck Date of Study: 07/07/2016 Date: 1940 Ht: 72.0 in Medical Record#: [id number] Age: 76 Wt: 166.0 lb Gender: Male BSA: 1.97 Order #: [id number] Location: [facility] Room #: 2NE16 Reading Physician: Jens Meier MD, [facility] Sales [employer]or Recruitment Representative: Zofia Swann RDCS Ordering Physician: Ray Coreas DO Primary Physician: Bhavani King CNP Indications: Chest pain Impressions: Mildly dilated left ventricle. Moderate-severe LV systolic dysfunction, LVEF 35%. There is global hypokinesis with regional variations. Mild left ventricular diastolic dysfunction. Mildly dilated right ventricle with mild RV hypokinesis. Moderately dilated right atrium. Mild mitral regurgitation. Moderate tricuspid regurgitation. Moderate pulmonary hypertension. Estimated RVSP = 52 mmHg. Left Ventricular Wall Motion: Rest Echo Findings The apex, apical inferior, mid inferior, basal inferior, apical anterior, mid anterior, basal anterior, apical septal, mid inferior septal, basal inferior septal, apical lateral, mid anterior lateral, basal anterior lateral, mid anterior septal, mid inferior lateral, basal anterior septal and basal inferior lateral chi were hypokinetic. Findings: Study Quality * Suboptimal echo windows. ECG Findings * Sinus rhythm and sinus bradycardia. Left Ventricle * Mildly dilated left ventricle. * Moderate-severe LV systolic dysfunction, LVEF 35%. There is global hypokinesis with regional variations. * Normal LV wall thickness. * Mild left ventricular diastolic dysfunction. Right Ventricle * Mildly dilated right ventricle with mild RV hypokinesis. Left Atrium * Normal left atrial size. Right Atrium * Moderately dilated right atrium. Aorta * Normally sized aortic root. Pericardium * There is no pericardial effusion present. IVC * The IVC is not well evaluated. Aortic Valve * Trileaflet aortic valve. * No aortic stenosis. * No aortic regurgitation. Mitral Valve * Normal mitral valve structure. * No mitral stenosis. * Mild mitral regurgitation. Tricuspid Valve * Normal tricuspid valve structure. * No tricuspid stenosis. * Moderate tricuspid regurgitation. * Moderate pulmonary hypertension. Estimated RVSP = 52 mmHg. Pulmonic Valve * Normal pulmonic valve structure. * No pulmonic stenosis. * Trace pulmonic regurgitation. History Hypertension Hypercholesteremia History of CAD/PTCA Coronary Artery Bypass Graft 02/26/2015 a Previous Echo was performed. Measurements: BP: 144/ 76 2D Normal Values RVIDd: 4.30 cm IVSd: .80 cm 0.6 - 1.0 cm LVIDd: 6.10 cm 3.7 - 5.6 cm LVPWd: .90 cm 0.6 - 1.1 cm LVIDs: 5.00 cm 1.5 - 3.6 cm AO: 3.00 cm < 4.0 cm LA volume: 48 Mitral Valve Peak E:.29 m/sec Peak A:.58 m/sec E/A Ratio:0.5 Tricuspid Valve TV Regurg Peak Grad: 47.00mmHg TV Regurg Peak Mo: 3.43m/sec Updated by Jens Meier MD, [facility] on 07/08/2016 9:15:04 AM electronically signed on 07/08/2016 9:15:48 AM with status of Final Wall Motion Lopez: 1=Normal, 2=Hypokinesis, 3=Akinesis, 4=Dyskinesis, 5=Aneurysmal, 6=Hyperkinetic, X=Not Visualized (Blank)=Missing
[2016-07-08] MEDS ORDERED: Isosorbide MONOnitrate (24 HR) 60 MG TAB.ER.24H PO SCH (09:30)
[2016-07-08 11:10] VITALS: BP 164/86
--- NOTE | 2016-07-08 19:26 | Electrocardiograph Report ---
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
--- NOTE | 2016-07-08 19:34 | Electrocardiograph Report ---
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
== END 2016-07-08 13:27 | disposition home or self-care (01) ==
LOC: EMEROO 13:14 → 2NENU 13:14
PROVIDERS: ADMIT Hospitalist; ATTEND Internal Medicine

== ENCOUNTER 2017-02-17 13:20 | Inpatient (IN) ==
--- NOTE | 2017-02-17 13:23 | Emergency Department Note ---
Disposition Clinical Impression: COPD (chronic obstructive pulmonary disease), Acute exacerbation of chronic obstructive airways disease, Pneumonia, Sepsis, Elevated troponin I level Disposition: Admitted As Inpatient Condition: Fair General Adult HPI - General Chief complaint: ED Shortness of Breath/Dyspnea Stated complaint: LELO, dehydrated Time Seen by Provider: 02/17/17 13:22 - Related Data Home Medications Medication Instructions Recorded Confirmed Albuterol Sulfate [Ventolin Hfa] 2 puff IH Q4-6H PRN 02/25/15 02/17/17 Allopurinol [Zyloprim] 300 mg PO BID 02/25/15 02/17/17 Finasteride [Proscar] 5 mg PO DAILY 02/25/15 02/17/17 Fluticasone Propionate Nasal 2 spray NS DAILY 02/25/15 02/17/17 [Flonase] Fluticasone/Salmeterol [Advair 1 each IH BID 02/25/15 02/17/17 500-50 Diskus] Ipratropium/Albuterol Neb [Duoneb] 3 ml IH Q6HR PRN 02/25/15 02/17/17 Isosorbide MONOnitrate (24 HR) 60 mg PO QPM 02/25/15 02/17/17 [Imdur] Nitroglycerin 0.4 mg SL Q5MIN PRN 02/25/15 02/17/17 Simvastatin [Zocor] 40 mg PO HS 02/25/15 02/17/17 Aspirin [Ecotrin] 325 mg PO DAILY 07/06/16 02/17/17 Desloratadine 5 mg PO DAILY 07/06/16 02/17/17 Lisinopril [Zestril] 10 mg PO QAM 07/06/16 02/17/17 Metoprolol Succinate 100 mg PO QPM 07/06/16 02/17/17 Ascorbic Acid [Vitamin C] 500 mg PO DAILY 02/17/17 02/17/17 Tramadol HCl [Ultram] 50 mg PO QID PRN 02/17/17 02/17/17 Vitamin E Acid Succinate [Vitamin 400 units PO DAILY 02/17/17 02/17/17 E] amLODIPine [Norvasc] 5 mg PO DAILY 02/17/17 02/17/17 Allergies Allergy/AdvReac Type Severity Reaction Status Date / Time No Known Allergies Allergy Verified 07/06/16 13:27 Past Medical History - Past Medical History Medical history: Reports: arthritis, atrial fibrillation, COPD, coronary artery disease, hyperlipidemia, hypertension, myocardial infarction, other Surgical history: Reports: coronary bypass (CABG) Psychiatric history: Reports: depression - Social History Smoking Status: Former smoker Smokeless Tobacco Status: No Alcohol use: Reports: occasionally Drug use: Reports: none Course Vital Signs Temperature 98.5 F 02/17/17 13:22 Pulse Rate 91 02/17/17 13:22 Respiratory Rate 22 02/17/17 13:22 Blood Pressure 153/74 02/17/17 13:22 O2 Sat by Pulse Oximetry 91 02/17/17 13:22 Temperature 97.4 F L 02/17/17 19:17 Pulse Rate 82 02/17/17 19:17 Respiratory Rate 20 02/17/17 19:17 Blood Pressure 116/69 02/17/17 19:17 O2 Sat by Pulse Oximetry 94 02/17/17 19:17 Oxygen Delivery Oxygen Delivery Nasal Cannula Medical Decision Making - Lab Data Result diagrams: 02/17/17 13:41 02/17/17 13:41 Lab Results 02/17/17 02/17/17 02/17/17 Range/Units 13:41 13:41 13:41 WBC 13.0 H (4.3-11.1) K/mcL RBC 4.07 L (4.19-5.50) M/mcL Hgb 12.1 L (12.9-16.9) g/dL Hct 36.5 L (37.5-50.1) % MCV 89.7 (83.0-100.0) fL MCH 29.7 (28.0-33.3) pg MCHC 33.2 (31.6-35.5) g/dL RDW 12.5 (11.5-14.5) % Plt Count 274 (140-400) K/mcL MPV 9.7 (9.4-12.4) fL Immature Gran % 0.7 (0-4) % Seg Neutrophils % 85.6 % Lymphocytes % 5.4 % Monocytes % 7.9 % Eosinophils % 0.2 % Basophils % 0.2 % Neutrophils # 11.1 H (1.6-8.9) K/mcL Lymphocytes # 0.7 (0.6-4.6) K/mcL Monocytes # 1.0 (0.0-1.3) K/mcL Eosinophils # 0.0 (0.0-0.6) K/mcL Basophils # 0.0 (0.0-0.2) K/mcL PT (9.4-12.1) Seconds INR APTT (26.0-36.0) Seconds VBG pH (7.32-7.42) pH Units VBG pCO2 (41-51) mmHg VBG pO2 (25-40) mmHg VBG HCO3 (21-27) mEq/L Sodium 136 (136-145) mEq/L Potassium 3.3 L (3.5-4.5) mEq/L Chloride 100 (98-109) mEq/L Carbon Dioxide 22 (19-29) mEq/L BUN 27 H (8-26) mg/dL Creatinine 1.10 (0.72-1.25) mg/dL Est GFR ( Amer) > 60 (> 60) Est GFR (Non-Af Amer) > 60 (> 60) BUN/Creatinine Ratio 25 (6-26) Glucose 135 H (70-99) mg/dL Calculated Osmolality 289 (280-300) Lactic Acid (0.5-2.2) mmol/L Calcium 8.8 (8.6-10.8) mg/dL Phosphorus 2.5 (2.3-4.7) mg/dL Magnesium 1.6 (1.6-2.6) mg/dL Total Bilirubin 1.1 (0.2-1.2) mg/dL Direct Bilirubin 0.6 H (0.0-0.5) mg/dL Indirect Bilirubin 0.5 (0.0-1.2) mg/dL AST 31 (5-34) Units/L ALT 23 (0-55) Units/L Alkaline Phosphatase 80 (38-126) Units/L Troponin I 0.05 H* (0-0.03) ng/mL Serum Total Protein 6.6 (6.0-8.3) g/dL Albumin 2.6 L (3.5-5.0) g/dL Globulin 4.0 H (2.4-3.5) g/dL Albumin/Globulin Ratio 0.7 L (1.1-2.2) Lipase 17 (8-78) Units/L 02/17/17 02/17/17 02/17/17 Range/Units 13:41 13:54 14:55 WBC (4.3-11.1) K/mcL RBC (4.19-5.50) M/mcL Hgb (12.9-16.9) g/dL Hct (37.5-50.1) % MCV (83.0-100.0) fL MCH (28.0-33.3) pg MCHC (31.6-35.5) g/dL RDW (11.5-14.5) % Plt Count (140-400) K/mcL MPV (9.4-12.4) fL Immature Gran % (0-4) % Seg Neutrophils % % Lymphocytes % % Monocytes % % Eosinophils % % Basophils % % Neutrophils # (1.6-8.9) K/mcL Lymphocytes # (0.6-4.6) K/mcL Monocytes # (0.0-1.3) K/mcL Eosinophils # (0.0-0.6) K/mcL Basophils # (0.0-0.2) K/mcL PT 14.4 H (9.4-12.1) Seconds INR 1.3 APTT 30.0 (26.0-36.0) Seconds VBG pH 7.36 (7.32-7.42) pH Units VBG pCO2 41 (41-51) mmHg VBG pO2 35 (25-40) mmHg VBG HCO3 23 (21-27) mEq/L Sodium (136-145) mEq/L Potassium (3.5-4.5) mEq/L Chloride (98-109) mEq/L Carbon Dioxide (19-29) mEq/L BUN (8-26) mg/dL Creatinine (0.72-1.25) mg/dL Est GFR ( Amer) (> 60) Est GFR (Non-Af Amer) (> 60) BUN/Creatinine Ratio (6-26) Glucose (70-99) mg/dL Calculated Osmolality (280-300) Lactic Acid 2.1 (0.5-2.2) mmol/L Calcium (8.6-10.8) mg/dL Phosphorus (2.3-4.7) mg/dL Magnesium (1.6-2.6) mg/dL Total Bilirubin (0.2-1.2) mg/dL Direct Bilirubin (0.0-0.5) mg/dL Indirect Bilirubin (0.0-1.2) mg/dL AST (5-34) Units/L ALT (0-55) Units/L Alkaline Phosphatase (38-126) Units/L Troponin I (0-0.03) ng/mL Serum Total Protein (6.0-8.3) g/dL Albumin (3.5-5.0) g/dL Globulin (2.4-3.5) g/dL Albumin/Globulin Ratio (1.1-2.2) Lipase (8-78) Units/L Attestation Statement - Attestation Attestation: I examined this patient and my medical decision-making was reviewed with the Resident Physician. I agree with the documented findings, disposition and treatment plan as described except to the extent set forth below. [id number] time provided Patient seen in conjunction with Dr. Treadwell. He complains of dyspnea, loss of appetite, generalized weakness. Appears in no acute distress on exam.
[2017-02-17] MEDS ORDERED: Ipratropium/Albuterol Neb 3 ML IH ONE (13:29)
--- NOTE | 2017-02-17 13:37 | Emergency Department Note ---
Disposition Clinical Impression: Acute exacerbation of chronic obstructive airways disease, Elevated troponin I level COPD (chronic obstructive pulmonary disease) Qualifiers: COPD type: COPD with acute lower respiratory infection Qualified Code(s): J44.0 - Chronic obstructive pulmonary disease with acute lower respiratory infection Pneumonia Qualifiers: Pneumonia type: due to unspecified organism Laterality: bilateral Lung location : unspecified part of lung Qualified Code(s): J18.9 - Pneumonia, unspecified organism Sepsis Qualifiers: Sepsis type: sepsis due to unspecified organism Qualified Code(s): A41.9 - Sepsis, unspecified organism Disposition: Admitted As Inpatient Condition: Fair Time of Disposition: 15:12 SOB HPI - General Chief Complaint: ED Shortness of Breath/Dyspnea Stated Complaint: LELO, dehydrated Time Seen by Provider: 02/17/17 13:22 Source: patient, EMS Limitations: no limitations Nursing Notes Reviewed: Yes Vital Signs Reviewed: Yes - History of Present Illness Patient is a 77-year-old male complains of shortness of breath and worsening over the past 5 days. Patient states he has been pretty much bedridden over the past 4 days. Patient states he has COPD with changes sputum. Normally clear whitish now whiskey colored. Patient denies any blood in his sputum. Patient denies any chest pain. Patient has a history of A. fib and sees Dr. Dangelo. Patient's on home oxygen at 2 L and EMS states he has increased to 4 L. EMS reported rhonchus lung sounds are more in the left lung reese. Patient states he quit smoking YRS AGO, patient admits to 4 beers per day, patient denies illicit drug use - Related Data Home Medications Medication Instructions Recorded Confirmed Albuterol Sulfate [Ventolin Hfa] 2 puff IH Q4-6H PRN 02/25/15 02/17/17 Allopurinol [Zyloprim] 300 mg PO BID 02/25/15 02/17/17 Finasteride [Proscar] 5 mg PO DAILY 02/25/15 02/17/17 Fluticasone Propionate Nasal 2 spray NS DAILY 02/25/15 02/17/17 [Flonase] Fluticasone/Salmeterol [Advair 1 each IH BID 02/25/15 02/17/17 500-50 Diskus] Ipratropium/Albuterol Neb [Duoneb] 3 ml IH Q6HR PRN 02/25/15 02/17/17 Isosorbide MONOnitrate (24 HR) 60 mg PO QPM 02/25/15 02/17/17 [Imdur] Nitroglycerin 0.4 mg SL Q5MIN PRN 02/25/15 02/17/17 Simvastatin [Zocor] 40 mg PO HS 02/25/15 02/17/17 Aspirin [Ecotrin] 325 mg PO DAILY 07/06/16 02/17/17 Desloratadine 5 mg PO DAILY 07/06/16 02/17/17 Lisinopril [Zestril] 10 mg PO QAM 07/06/16 02/17/17 Metoprolol Succinate 100 mg PO QPM 07/06/16 02/17/17 Ascorbic Acid [Vitamin C] 500 mg PO DAILY 02/17/17 02/17/17 Tramadol HCl [Ultram] 50 mg PO QID PRN 02/17/17 02/17/17 Vitamin E Acid Succinate [Vitamin 400 units PO DAILY 02/17/17 02/17/17 E] amLODIPine [Norvasc] 5 mg PO DAILY 02/17/17 02/17/17 Allergies Allergy/AdvReac Type Severity Reaction Status Date / Time No Known Allergies Allergy Verified 07/06/16 13:27 All systems ED: reviewed and negative except as stated. Review of Systems: As Per HPI Constitutional: Reports: weakness. Denies: fever, chills Eyes: Denies: vision change ENT ED: Reports: congestion. Denies: throat pain, dysphagia Cardiovascular: Reports: dyspnea on exertion. Denies: chest pain, palpitations Respiratory: Reports: cough, dyspnea. Denies: hemoptysis Gastrointestinal: Denies: abdominal pain, nausea, vomiting, diarrhea, hematemesis, melena Genitourinary: Denies: urgency, dysuria, frequency Musculoskeletal: Denies: back pain Integumentary: Denies: rash Neurological: Denies: headache Past Medical History - Past Medical History Attestation: Yes The following information was validated with the patient. Source: patient Medical history: Reports: arthritis, atrial fibrillation, COPD, coronary artery disease, hyperlipidemia, hypertension, myocardial infarction, other Surgical history: Reports: coronary bypass (CABG) Psychiatric history: Reports: depression - Social History Smoking Status: Former smoker Smokeless Tobacco Status: No Alcohol use: Reports: occasionally Drug use: Reports: none Physical Exam 77-year-old male who is alert and oriented 3 and in no acute distress. Patient has no conversational dyspnea. Patient does have any increased work of breathing. Patient has a rhonchus WET sounding cough is nonproductive. - General Limitations: no limitations General appearance: alert - Head Head exam: atraumatic, normocephalic, normal inspection - Eye Eye exam: Present: normal appearance, PERRL, EOMI - ENT ENT exam: normal exam, normal oropharynx, mucous membranes moist - Neck Neck exam: Present: normal inspection, full ROM, trachea midline - Chest Chest inspection: Present: normal inspection, symmetric chest wall rise. Absent : tenderness, rash - Respiratory Respiratory exam: Present: normal lung sounds bilaterally - Cardiovascular Cardiovascular exam: Present: regular rate, irregular rhythm, normal heart sounds - Abdominal Exam Abdominal exam: Present: soft, Non-Tender - Extremities Exam Extremities exam: Present: normal inspection, full ROM. Absent: tenderness, pedal edema - Expanded Lower Extremity Exam Hip/Pelvis exam: Present: normal inspection, full ROM Upper leg exam: Present: normal inspection, full ROM Knee exam: Present: full ROM, ecchymosis (Patient states his knees have been this way for a long time and no tenderness with palpation). Absent: tenderness , erythema Lower leg exam: Present: normal inspection, full ROM Ankle exam: Present: normal inspection, full ROM Foot/toe exam: Present: normal inspection, full ROM Neurovascular/Tendon exam: Absent: motor deficit, sensory deficit, tendon deficit - Back Exam Back exam: Present: normal inspection, full ROM. Absent: tenderness, CVA tenderness (R), CVA tenderness (L) - Neurological Exam Neurological exam: Present: alert, oriented X3 - Skin Skin exam: Present: warm. Absent: cyanosis, diaphoresis, pallor Course - Consultations Consultation #1: Dr. Estevez has accepted the patient for admission Time: 15:03 Vital Signs Temperature 98.5 F 02/17/17 13:22 Pulse Rate 91 02/17/17 13:22 Respiratory Rate 22 02/17/17 13:22 Blood Pressure 153/74 02/17/17 13:22 O2 Sat by Pulse Oximetry 91 02/17/17 13:22 Temperature 98.5 F 02/17/17 13:22 Pulse Rate 92 02/17/17 15:00 Respiratory Rate 18 02/17/17 15:54 Blood Pressure 131/66 02/17/17 15:31 O2 Sat by Pulse Oximetry 91 02/17/17 15:54 Oxygen Delivery Oxygen Delivery Nasal Cannula Shortness of Breath/Dyspnea - MDM Narrative Medical decision making narrative: Patient brought in with acute COPD exacerbation secondary to possible pneumonia given patient's history of change in sputum and rhonchus lung sounds. Patient has history of A. fib but has no chest pain symptoms. In the absence of any findings. Also consider PE, or cardiac pathology for ACS/MO Patient's labs came back and elevated white count, elevation of troponin 0.05, but no chest pain, elevation most likely secondary to demand ischemia; and chest x-ray which shows interstitial consolidations. Patient's concerning for pneumonia will be started on levofloxacin, and cultures will be sent for workup for sepsis before initiation of antibiotics. Plan is for admission. Patient's been updated. Patient states he has had no change in symptoms even with DuoNeb therapy. He still reports no pain. Patient was accepted for admission by Dr. Estevez the hospitalist. - Lab Data Lab results reviewed: Yes I reviewed the patient's lab results. Lab results narrative: Short CBC 02/17/17 Range/Units 13:41 WBC 13.0 H (4.3-11.1) K/mcL Hgb 12.1 L (12.9-16.9) g/dL Hct 36.5 L (37.5-50.1) % Plt Count 274 (140-400) K/mcL Neutrophils # 11.1 H (1.6-8.9) K/mcL BMP 02/17/17 Range/Units 13:41 Sodium 136 (136-145) mEq/L Potassium 3.3 L (3.5-4.5) mEq/L Chloride 100 (98-109) mEq/L Carbon Dioxide 22 (19-29) mEq/L BUN 27 H (8-26) mg/dL Creatinine 1.10 (0.72-1.25) mg/dL Glucose 135 H (70-99) mg/dL Calcium 8.8 (8.6-10.8) mg/dL Cardiac Enzymes 02/17/17 Range/Units 13:41 Troponin I 0.05 H* (0-0.03) ng/mL Liver Function 02/17/17 Range/Units 13:41 Total Bilirubin 1.1 (0.2-1.2) mg/dL Direct Bilirubin 0.6 H (0.0-0.5) mg/dL AST 31 (5-34) Units/L ALT 23 (0-55) Units/L Alkaline Phosphatase 80 (38-126) Units/L Albumin 2.6 L (3.5-5.0) g/dL Result diagrams: 02/17/17 13:41 02/17/17 13:41 Lab Results 02/17/17 02/17/17 02/17/17 Range/Units 13:41 13:41 13:41 WBC 13.0 H (4.3-11.1) K/mcL RBC 4.07 L (4.19-5.50) M/mcL Hgb 12.1 L (12.9-16.9) g/dL Hct 36.5 L (37.5-50.1) % MCV 89.7 (83.0-100.0) fL MCH 29.7 (28.0-33.3) pg MCHC 33.2 (31.6-35.5) g/dL RDW 12.5 (11.5-14.5) % Plt Count 274 (140-400) K/mcL MPV 9.7 (9.4-12.4) fL Immature Gran % 0.7 (0-4) % Seg Neutrophils % 85.6 % Lymphocytes % 5.4 % Monocytes % 7.9 % Eosinophils % 0.2 % Basophils % 0.2 % Neutrophils # 11.1 H (1.6-8.9) K/mcL Lymphocytes # 0.7 (0.6-4.6) K/mcL Monocytes # 1.0 (0.0-1.3) K/mcL Eosinophils # 0.0 (0.0-0.6) K/mcL Basophils # 0.0 (0.0-0.2) K/mcL PT (9.4-12.1) Seconds INR APTT (26.0-36.0) Seconds VBG pH (7.32-7.42) pH Units VBG pCO2 (41-51) mmHg VBG pO2 (25-40) mmHg VBG HCO3 (21-27) mEq/L Sodium 136 (136-145) mEq/L Potassium 3.3 L (3.5-4.5) mEq/L Chloride 100 (98-109) mEq/L Carbon Dioxide 22 (19-29) mEq/L BUN 27 H (8-26) mg/dL Creatinine 1.10 (0.72-1.25) mg/dL Est GFR ( Amer) > 60 (> 60) Est GFR (Non-Af Amer) > 60 (> 60) BUN/Creatinine Ratio 25 (6-26) Glucose 135 H (70-99) mg/dL Calculated Osmolality 289 (280-300) Lactic Acid (0.5-2.2) mmol/L Calcium 8.8 (8.6-10.8) mg/dL Phosphorus 2.5 (2.3-4.7) mg/dL Magnesium 1.6 (1.6-2.6) mg/dL Total Bilirubin 1.1 (0.2-1.2) mg/dL Direct Bilirubin 0.6 H (0.0-0.5) mg/dL Indirect Bilirubin 0.5 (0.0-1.2) mg/dL AST 31 (5-34) Units/L ALT 23 (0-55) Units/L Alkaline Phosphatase 80 (38-126) Units/L Troponin I 0.05 H* (0-0.03) ng/mL Serum Total Protein 6.6 (6.0-8.3) g/dL Albumin 2.6 L (3.5-5.0) g/dL Globulin 4.0 H (2.4-3.5) g/dL Albumin/Globulin Ratio 0.7 L (1.1-2.2) Lipase 17 (8-78) Units/L 02/17/17 02/17/17 02/17/17 Range/Units 13:41 13:54 14:55 WBC (4.3-11.1) K/mcL RBC (4.19-5.50) M/mcL Hgb (12.9-16.9) g/dL Hct (37.5-50.1) % MCV (83.0-100.0) fL MCH (28.0-33.3) pg MCHC (31.6-35.5) g/dL RDW (11.5-14.5) % Plt Count (140-400) K/mcL MPV (9.4-12.4) fL Immature Gran % (0-4) % Seg Neutrophils % % Lymphocytes % % Monocytes % % Eosinophils % % Basophils % % Neutrophils # (1.6-8.9) K/mcL Lymphocytes # (0.6-4.6) K/mcL Monocytes # (0.0-1.3) K/mcL Eosinophils # (0.0-0.6) K/mcL Basophils # (0.0-0.2) K/mcL PT 14.4 H (9.4-12.1) Seconds INR 1.3 APTT 30.0 (26.0-36.0) Seconds VBG pH 7.36 (7.32-7.42) pH Units VBG pCO2 41 (41-51) mmHg VBG pO2 35 (25-40) mmHg VBG HCO3 23 (21-27) mEq/L Sodium (136-145) mEq/L Potassium (3.5-4.5) mEq/L Chloride (98-109) mEq/L Carbon Dioxide (19-29) mEq/L BUN (8-26) mg/dL Creatinine (0.72-1.25) mg/dL Est GFR ( Amer) (> 60) Est GFR (Non-Af Amer) (> 60) BUN/Creatinine Ratio (6-26) Glucose (70-99) mg/dL Calculated Osmolality (280-300) Lactic Acid 2.1 (0.5-2.2) mmol/L Calcium (8.6-10.8) mg/dL Phosphorus (2.3-4.7) mg/dL Magnesium (1.6-2.6) mg/dL Total Bilirubin (0.2-1.2) mg/dL Direct Bilirubin (0.0-0.5) mg/dL Indirect Bilirubin (0.0-1.2) mg/dL AST (5-34) Units/L ALT (0-55) Units/L Alkaline Phosphatase (38-126) Units/L Troponin I (0-0.03) ng/mL Serum Total Protein (6.0-8.3) g/dL Albumin (3.5-5.0) g/dL Globulin (2.4-3.5) g/dL Albumin/Globulin Ratio (1.1-2.2) Lipase (8-78) Units/L - Radiology Data Radiology results reviewed: Yes I reviewed the patient's radiology results. Chest X-Ray 02/17/17 13:28 IMPRESSION: Significant progression in interstitial opacities, NSIP pattern. Superimposed pulmonary edema is considered in the setting. Cardiac silhouette projects is more prominent, possible cardiomegaly. D/ / Marvin Tellez MD / Marvin Tellez MD Interpreting Provider: Marvin Tellez MD
[2017-02-17 13:50] LABS: Basophils % 0.2 %; Eosinophils % 0.2 %; Hematocrit 36.5 % (37.5-50.1); Hemoglobin 12.1 g/dL (12.9-16.9); Immature Granulocytes % 0.7 % (0-4); Lymphocytes # 0.7 K/mcL (0.6-4.6); Lymphocytes % 5.4 %; Mean Corpuscular HGB Conc 33.2 g/dL (31.6-35.5); Mean Corpuscular Hemoglobin 29.7 pg (28.0-33.3); Mean Corpuscular Volume 89.7 fL (83.0-100.0); Mean Platelet Volume 9.7 fL (9.4-12.4); Monocytes % 7.9 %; Neutrophils # 11.1 K/mcL (1.6-8.9); Platelet Count 274 K/mcL (140-400); Red Blood Count 4.07 M/mcL (4.19-5.50); Red Cell Distribution Width 12.5 % (11.5-14.5); Segmented Neutrophils % 85.6 %
[2017-02-17 14:02] LABS: BUN/Creatinine Ratio 25 (6-26); Blood Urea Nitrogen 27 mg/dL (8-26); Calcium 8.8 mg/dL (8.6-10.8); Carbon Dioxide 22 mEq/L (19-29); Chloride 100 mEq/L (98-109); Glucose 135 mg/dL (70-99); Osmolality,Calculated 289 (280-300); Potassium 3.3 mEq/L (3.5-4.5); Sodium 136 mEq/L (136-145); eGFR For African Americans > 60 (> 60); eGFR For Non-African Americans > 60 (> 60)
[2017-02-17] MEDS ORDERED: Levofloxacin 750 MG/150 ML 750 MG/150 ML BAG IVPB ONE (14:20)
[2017-02-17 14:57] LABS: INR 1.3; Prothrombin Time 14.4 Seconds (9.4-12.1)
[2017-02-17] MEDS: 0.9 % Sodium Chloride 1,000 ML IVC SCH ×2 (14:59→16:36)
[2017-02-17 15:06] LABS: Alanine Aminotransferase 23 Units/L (0-55); Albumin 2.6 g/dL (3.5-5.0); Albumin/Globulin Ratio 0.7 (1.1-2.2); Alkaline Phosphatase 80 Units/L (38-126); Aspartate Amino Transferase 31 Units/L (5-34); Bilirubin,Direct 0.6 mg/dL (0.0-0.5); Bilirubin,Indirect 0.5 mg/dL (0.0-1.2); Bilirubin,Total 1.1 mg/dL (0.2-1.2); Lipase 17 Units/L (8-78); Magnesium 1.6 mg/dL (1.6-2.6); Phosphorous 2.5 mg/dL (2.3-4.7); Total Protein 6.6 g/dL (6.0-8.3)
[2017-02-17 15:21] LABS: VBG PH 7.36 pH Units (7.32-7.42)
[2017-02-17] MEDS ORDERED: Ondansetron 4 MG/2 ML VIAL IVP PRN (15:26)
[2017-02-17] MEDS ORDERED: Naloxone 0.4 MG/ML INJ IVP PRN (15:26)
[2017-02-17] MEDS ORDERED: *HR* Morphine 2 MG/ML SYRINGE IVP PRN (15:26)
[2017-02-17] MEDS ORDERED: Acetaminophen 325 MG TABLET PO PRN (15:26)
[2017-02-17] MEDS ORDERED: traMADol 50 MG TABLET PO PRN (15:30)
[2017-02-17] MEDS ORDERED: Nitroglycerin 0.4 MG TAB.SUBL SL PRN (15:30)
--- NOTE | 2017-02-17 15:33 | Internal Med History&Physical ---
Date of Encounter: 02/17/17 Time of Encounter: 15:32 Assessment and Plan (1) Acute and chronic respiratory failure Current visit: Yes Status: Acute acute on chronic respiratory failure likely secondary to atypical pneumonia in combination with acute pulmonary edema due to systolic CHF exacerbation Continue Levaquin, start Lasix IV, strict I's and O's and daily weight Repeat echocardiogram to assess the need of an AICD, consider cardiology consult ma May check Legionella antigeny check Legionella antigen Continue telemetry Omeprazole for GI prophylaxis and subcutaneous heparin for DVT prophylaxis. The patient will be admitted for observation, he is a full code. Time spent on this admission 40 minutes. Qualifiers: Respiratory failure complication: hypoxia Qualified Code(s): J96.21 - Acute and chronic respiratory failure with hypoxia (2) Systolic CHF Current visit: Yes Status: Acute Lasix Qualifiers: Congestive heart failure chronicity: acute on chronic Qualified Code(s): I50.23 - Acute on chronic systolic (congestive) heart failure (3) Atrial fibrillation Current visit: No Status: Acute Qualifiers: Atrial fibrillation type: paroxysmal Qualified Code(s): I48.0 - Paroxysmal atrial fibrillation (4) COPD (chronic obstructive pulmonary disease) Current visit: No Status: Chronic no exacerbation Qualifiers: COPD type: emphysema Emphysema type: unspecified Qualified Code(s): J43.9 - Emphysema, unspecified (5) Hyperlipidemia Current visit: No Status: Chronic Qualifiers: Hyperlipidemia type: pure hypercholesterolemia Qualified Code(s): E78.00 - Pure hypercholesterolemia, unspecified; E78.0 - Pure hypercholesterolemia (6) Pneumonia Current visit: Yes Status: Acute levaquin Qualifiers: Pneumonia type: due to unspecified organism Laterality: bilateral Lung location: unspecified part of lung Qualified Code(s): J18.9 - Pneumonia, unspecified organism (7) Hypokalemia Current visit: Yes Status: Acute Replete as needed Internal Medicine - H&P: HPI Chief complaint: shortness of breath Admitted From: Emergency Dept History of present illness: Mr. Heck is a 77 year old male with a past medical history of pulmonary fibrosis, COPD oxygen dependent, hypertension, hyperlipidemia, systolic CHF, who came to the emergency room complaining of severe difficulty breathing for the past 5 days to the point that he was not able to get up from bed for the past 4 days. His has been sick for the past few weeks for which she was prescribed to see back. Patient says that that he is bringing up some type of whiskey colored phlegm. Chest x-ray shows progression of interstitial opacities , diffuse and pulmonary edema. White blood cell count is 13 and potassium is 3.3. Patient is ill very weak, denies any fevers. Was started on Levaquin at the emergency room. Denies taking any diuretic, is very congested Past Med Surg Social Fam HX - Past Medical History Medical history: arthritis, atrial fibrillation (Not on anticoagulation), COPD ( Oxygen dependent using 2 L at home), coronary artery disease, hyperlipidemia, hypertension, myocardial infarction, other (Neuropathy, gout, systolic CHF, depression, atrial fibrillation followed by Dr. Dangelo) Psychiatric history: depression - Past Surgical History Surgical History: coronary bypass (CABG), other (Subdural hematoma in 2013, cardiac catheterization) - Social History Smoking Status: Former smoker (Quit in the 80s) Smokeless Tobacco Status: No Alcohol use: occasionally Drug use: none - Family History Mother Family Member Ethnicity: Non- Living Status: Hx Family Cardiac Disorders: Yes - Additional Family History Additional family history: Mother with WI and father with lung disease Internal Medicine - H&P: Meds Albuterol Sulfate [Ventolin Hfa] 2 puff IH Q4-6H PRN 02/25/15 [History] Allopurinol [Zyloprim] 300 mg PO BID 02/25/15 [History] Finasteride [Proscar] 5 mg PO DAILY 02/25/15 [History] Fluticasone Propionate Nasal [Flonase] 2 spray NS DAILY 02/25/15 [History] Fluticasone/Salmeterol [Advair 500-50 Diskus] 1 each IH BID 02/25/15 [History] Ipratropium/Albuterol Neb [Duoneb] 3 ml IH Q6HR PRN 02/25/15 [History] Isosorbide MONOnitrate (24 HR) [Imdur] 60 mg PO QPM 02/25/15 [History] Nitroglycerin 0.4 mg SL Q5MIN PRN 02/25/15 [History] Simvastatin [Zocor] 40 mg PO HS 02/25/15 [History] Aspirin [Ecotrin] 325 mg PO DAILY 07/06/16 [History] Desloratadine 5 mg PO DAILY 07/06/16 [History] Lisinopril [Zestril] 10 mg PO QAM 07/06/16 [History] Metoprolol Succinate 100 mg PO QPM 07/06/16 [History] Ascorbic Acid [Vitamin C] 500 mg PO DAILY 02/17/17 [History] Tramadol HCl [Ultram] 50 mg PO QID PRN 02/17/17 [History] Vitamin E Acid Succinate [Vitamin E] 400 units PO DAILY 02/17/17 [History] amLODIPine [Norvasc] 5 mg PO DAILY 02/17/17 [History] 3 Allergy/AdvReac Type Severity Reaction Status Date / Time No Known Allergies Allergy Verified 07/06/16 13:27 All Systems PM: A 10-system review of systems was performed and is negative for pertinent findings except as documented above in the HPI. Review of systems: She was short of breath, denies any chest pain, no abdominal pain, no dysuria. Other systems out of the 10 reviewed were negative. - Constitutional Vitals: Temp Pulse Resp BP Pulse Ox 98.5 F 92 18 137/71 95 02/17/17 13:22 02/17/17 15:00 02/17/17 15:00 02/17/17 15:00 02/17/17 15:00 General appearance: Present: A&O X 3 - Head Head exam: Present: atraumatic, normocephalic - Eye Eye exam: Present: PERRL, conjuntiva pink, sclera anicteric Pupils: Present: PERRL - Neck Neck exam general surgery: Present: supple, trachea midline. Absent: lymphadenopathy - Respiratory Respiratory exam: Present: CTAB, rales (Diffuse crackles). Absent: accessory muscle use, rhonchi, wheezes - Cardiovascular Cardiovascular exam: Present: RRR, +S1, +S2. Absent: diastolic murmur, gallop, rubs, systolic murmur - GI/Abdominal GI/Abdominal exam: Present: normal bowel sounds, soft, no peritoneal signs. Absent: distended, tenderness - Extremities Exam Extremities exam: Present: warm, radial pulses palpable and symmetrical. Absent : calf tenderness, cyanotic, pedal edema - Neurological Exam Neurological exam: Present: CN II-XII intact, oriented X3, no focal deficits. Absent: pronater drift, facial droop, speech deficit - Skin Skin exam: Present: dry, intact Internal Med - H&P Results - Labs CBC & Chem 7: 02/17/17 13:41 02/17/17 13:41 Labs: Short CBC 02/17/17 Range/Units 13:41 WBC 13.0 H (4.3-11.1) K/mcL Hgb 12.1 L (12.9-16.9) g/dL Hct 36.5 L (37.5-50.1) % Plt Count 274 (140-400) K/mcL Neutrophils # 11.1 H (1.6-8.9) K/mcL BMP 02/17/17 13:41 Sodium 136 Potassium 3.3 L Chloride 100 Carbon Dioxide 22 BUN 27 H Creatinine 1.10 Glucose 135 H Calcium 8.8 Cardiac Enzymes 02/17/17 Range/Units 13:41 Troponin I 0.05 H* (0-0.03) ng/mL Liver Function 02/17/17 Range/Units 13:41 Total Bilirubin 1.1 (0.2-1.2) mg/dL Direct Bilirubin 0.6 H (0.0-0.5) mg/dL AST 31 (5-34) Units/L ALT 23 (0-55) Units/L Alkaline Phosphatase 80 (38-126) Units/L Albumin 2.6 L (3.5-5.0) g/dL - ABG Interpretation ABG results: 02/17/17 14:55 VBG pH 7.36 VBG pCO2 41 VBG pO2 35 VBG HCO3 23 - Impressions ITS Impressions Chest X-Ray 02/17/17 13:28 IMPRESSION: Significant progression in interstitial opacities, NSIP pattern. Superimposed pulmonary edema is considered in the setting. Cardiac silhouette projects is more prominent, possible cardiomegaly. D/ / Marvin Tellez MD / Marvin Tellez MD Interpreting Provider: Marvin Tellez MD
[2017-02-17] MEDS: Ipratropium/Albuterol Neb 3 ML IH SCH ×2 (15:51→22:55)
[2017-02-17] MEDS: Metoprolol XL (24 HR) Succ 50 MG TAB.ER.24H PO SCH (17:23)
[2017-02-17] MEDS: Isosorbide MONOnitrate (24 HR) 60 MG TAB.ER.24H PO SCH (17:23)
[2017-02-17] MEDS: Furosemide 20 MG/2 ML VIAL IVP SCH (17:24)
[2017-02-17] MEDS: *HR* Heparin 5,000 UNIT/ML VIAL SQ SCH (23:06)
[2017-02-18 03:43] LABS: BUN/Creatinine Ratio 23 (6-26); Blood Urea Nitrogen 27 mg/dL (8-26); Calcium 8.6 mg/dL (8.6-10.8); Carbon Dioxide 22 mEq/L (19-29); Chloride 102 mEq/L (98-109); Glucose 171 mg/dL (70-99); Osmolality,Calculated 291 (280-300); Sodium 136 mEq/L (136-145); eGFR For African Americans > 60 (> 60); eGFR For Non-African Americans > 60 (> 60)
[2017-02-18] MEDS: Ipratropium/Albuterol Neb 3 ML IH SCH ×5 (03:50→22:03)
[2017-02-18] MEDS: *HR* Heparin 5,000 UNIT/ML VIAL SQ SCH ×3 (06:22→22:10)
[2017-02-18] MEDS: Finasteride 5 MG TABLET PO SCH (08:01)
[2017-02-18] MEDS: amLODIPine 5 MG TABLET PO SCH (08:01)
[2017-02-18] MEDS: Aspirin Enteric Coated 325 MG Tablet PO SCH (08:02)
[2017-02-18] MEDS: Furosemide 20 MG/2 ML VIAL IVP SCH ×4 (08:02→17:23)
--- NOTE | 2017-02-18 08:55 | Internal Med Progress Note ---
Date of Encounter: 02/18/17 Time of Encounter: 08:52 - Assessment and plan (1) Acute and chronic respiratory failure Current Visit: Yes Status: Acute Assessment and plan: acute on chronic hypoxic respiratory failure likely secondary to atypical pneumonia in combination with acute pulmonary edema due to acute systolic CHF exacerbated by urinary retention Continue Levaquin day 2, increase Lasix IV up to 20 mg TID, strict I's and O's and daily weight echocardiogram to assess the need of an AICD, consider cardiology consult check Legionella antigen repeat CXR, consider ABG Place Gutierrez Qualifiers: Respiratory failure complication: hypoxia Qualified Code(s): J96.21 - Acute and chronic respiratory failure with hypoxia (2) Systolic CHF Current Visit: Yes Status: Acute Assessment and plan: lasix Qualifiers: Congestive heart failure chronicity: acute on chronic Qualified Code(s): I50.23 - Acute on chronic systolic (congestive) heart failure (3) Atrial fibrillation Current Visit: No Status: Acute Assessment and plan: metoprolol Qualifiers: Atrial fibrillation type: paroxysmal Qualified Code(s): I48.0 - Paroxysmal atrial fibrillation (4) COPD (chronic obstructive pulmonary disease) Current Visit: No Status: Chronic Assessment and plan: no exacerbation Qualifiers: COPD type: emphysema Emphysema type: unspecified Qualified Code(s): J43.9 - Emphysema, unspecified (5) Hyperlipidemia Current Visit: No Status: Chronic Qualifiers: Hyperlipidemia type: pure hypercholesterolemia Qualified Code(s): E78.00 - Pure hypercholesterolemia, unspecified; E78.0 - Pure hypercholesterolemia (6) Pneumonia Current Visit: Yes Status: Acute Qualifiers: Pneumonia type: due to unspecified organism Laterality: bilateral Lung location: unspecified part of lung Qualified Code(s): J18.9 - Pneumonia, unspecified organism (7) Hypokalemia Current Visit: Yes Status: Acute Assessment and plan: resolved - Subjective Interval history: Still feeling SOB, bringing up less phlegm , no CP , has had urinary retention ( >800 cc), no fevers, no abdominal pain - Constitutional Vitals: Temp Pulse Resp BP Pulse Ox 97.7 F 88 20 124/75 92 02/18/17 07:01 02/18/17 07:01 02/18/17 07:01 02/18/17 07:01 02/18/17 08:08 General appearance: Present: A&O X 3 Exam: - Head Head exam: Present: atraumatic, normocephalic - Eye Eye exam: Present: PERRL, conjuntiva pink, sclera anicteric Pupils: Present: PERRL - Neck Neck exam general surgery: Present: supple, trachea midline. Absent: lymphadenopathy - Respiratory Respiratory exam: Present: CTAB, rales (Diffuse crackles). Absent: accessory muscle use, rhonchi, wheezes - Cardiovascular Cardiovascular exam: Present: RRR, +S1, +S2. Absent: diastolic murmur, gallop, rubs, systolic murmur - GI/Abdominal GI/Abdominal exam: Present: normal bowel sounds, soft, no peritoneal signs. Absent: distended, tenderness - Extremities Exam Extremities exam: Present: warm, radial pulses palpable and symmetrical. Absent : calf tenderness, cyanotic, pedal edema - Neurological Exam Neurological exam: Present: CN II-XII intact, oriented X3, no focal deficits. Absent: pronater drift, facial droop, speech deficit - Skin Skin exam: Present: dry, intact Internal Medicine: Result - Labs CBC & Chem 7: 02/17/17 13:41 02/18/17 02:47 Labs: BMP 02/18/17 02:47 Sodium 136 Potassium 4.0 Chloride 102 Carbon Dioxide 22 BUN 27 H Creatinine 1.17 Glucose 171 H Calcium 8.6 - ABG Interpretation ABG results: PT/INR, D-dimer PT 14.4 Seconds (9.4-12.1) H 02/17/17 13:41 Consult Discharge Plan - Plan Referrals: Bhavani King TEXTILE CONVERSION MANAGER [Primary Care Provider] -
[2017-02-18 09:29] LABS: Bilirubin,Urine Negative (Negative); Blood,Urine Negative (Negative); Clarity,Urine Clear (Clear); Color,Urine Yellow (Yellow); Glucose,Urine (UA) Normal (Normal); Ketones,Urine Negative (Negative); Leukocyte Esterase,Urine Negative (Negative); Nitrite,Urine Negative (Negative); PH,Urine 5.5 pH Units (5.0-8.0); Protein,Urine 30 mg/dL (Neg-Trace); Specific Gravity,Urine 1.016 (1.010-1.025); Urobilinogen,Urine Normal (Normal)
[2017-02-18 09:31] LABS: Bacteria,Urine None Seen per hpf (None-Few); Hyaline Casts,Urine None Seen per lpf (None-Few); Squamous Epithelial Cell,Urine Moderate per lpf (None-Few); WBC,Urine 0-3 per hpf (0-3)
[2017-02-18] MEDS: Metoprolol XL (24 HR) Succ 50 MG TAB.ER.24H PO SCH (17:22)
[2017-02-18] MEDS: Isosorbide MONOnitrate (24 HR) 60 MG TAB.ER.24H PO SCH (17:23)
--- NOTE | 2017-02-18 18:04 | Electrocardiograph Report ---
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
[2017-02-18] MEDS: Mirtazapine 15 MG TABLET PO SCH (20:45)
[2017-02-19 03:05] LABS: Hematocrit 29.4 % (37.5-50.1); Mean Corpuscular HGB Conc 34.4 g/dL (31.6-35.5); Mean Corpuscular Hemoglobin 30.9 pg (28.0-33.3); Mean Corpuscular Volume 89.9 fL (83.0-100.0); Mean Platelet Volume 9.9 fL (9.4-12.4); Platelet Count 277 K/mcL (140-400); Red Blood Count 3.27 M/mcL (4.19-5.50); Red Cell Distribution Width 12.6 % (11.5-14.5)
[2017-02-19 03:06] LABS: Hemoglobin 10.1 g/dL (12.9-16.9)
[2017-02-19 03:18] LABS: BUN/Creatinine Ratio 28 (6-26); Blood Urea Nitrogen 37 mg/dL (8-26); Calcium 8.3 mg/dL (8.6-10.8); Carbon Dioxide 25 mEq/L (19-29); Chloride 105 mEq/L (98-109); Glucose 146 mg/dL (70-99); Osmolality,Calculated 297 (280-300); Potassium 3.6 mEq/L (3.5-4.5); Sodium 138 mEq/L (136-145); eGFR For African Americans > 60 (> 60); eGFR For Non-African Americans 53 (> 60)
[2017-02-19] MEDS: Ipratropium/Albuterol Neb 3 ML IH SCH ×4 (03:24→21:28)
[2017-02-19] MEDS: *HR* Heparin 5,000 UNIT/ML VIAL SQ SCH ×3 (06:09→21:06)
[2017-02-19] MEDS: amLODIPine 5 MG TABLET PO SCH (08:25)
[2017-02-19] MEDS: Aspirin Enteric Coated 325 MG Tablet PO SCH (08:25)
[2017-02-19] MEDS: Furosemide 20 MG/2 ML VIAL IVP SCH (08:25)
[2017-02-19] MEDS: Finasteride 5 MG TABLET PO SCH (08:25)
--- NOTE | 2017-02-19 09:22 | Internal Med Progress Note ---
Date of Encounter: 02/19/17 Time of Encounter: 09:19 - Assessment and plan (1) Acute and chronic respiratory failure Current Visit: Yes Status: Acute Assessment and plan: acute on chronic hypoxic respiratory failure likely secondary to atypical pneumonia in combination with acute pulmonary edema due to acute systolic CHF exacerbated by urinary retention Discontinue Levaquin ( received 1 dose upon admision and was prescried q48h per pharmacy) , Switch to Cefepime and azithromycin Decrease Lasix IV down to 20 mg daily , strict I's and O's and daily weight echocardiogram showed EF of 40% (better than before 35%) repeat CXR showed progreesion of possible infectious process , order ABG and CT chest case discussed with Pulm attending, may place formal consult if oxigen not improving ( the patient feels clinically better) Placed Prater Qualifiers: Respiratory failure complication: hypoxia Qualified Code(s): J96.21 - Acute and chronic respiratory failure with hypoxia (2) Systolic CHF Current Visit: Yes Status: Acute Assessment and plan: lasix Qualifiers: Congestive heart failure chronicity: acute on chronic Qualified Code(s): I50.23 - Acute on chronic systolic (congestive) heart failure (3) Atrial fibrillation Current Visit: No Status: Acute Assessment and plan: metoprolol Qualifiers: Atrial fibrillation type: paroxysmal Qualified Code(s): I48.0 - Paroxysmal atrial fibrillation (4) COPD (chronic obstructive pulmonary disease) Current Visit: No Status: Chronic Assessment and plan: no exacerbation Qualifiers: COPD type: emphysema Emphysema type: unspecified Qualified Code(s): J43.9 - Emphysema, unspecified (5) Hyperlipidemia Current Visit: No Status: Chronic Qualifiers: Hyperlipidemia type: pure hypercholesterolemia Qualified Code(s): E78.00 - Pure hypercholesterolemia, unspecified; E78.0 - Pure hypercholesterolemia (6) Pneumonia Current Visit: Yes Status: Acute Qualifiers: Pneumonia type: due to unspecified organism Laterality: bilateral Lung location: unspecified part of lung Qualified Code(s): J18.9 - Pneumonia, unspecified organism (7) Hypokalemia Current Visit: Yes Status: Acute Assessment and plan: resolved (8) Acute renal failure (ARF) Current Visit: Yes Status: Acute Assessment and plan: likely from diuresis and urinary obstruction Prater in place, decrease dose of lasix Qualifiers: Acute renal failure type: unspecified Qualified Code(s): N17.9 - Acute kidney failure, unspecified - Subjective Interval history: Requiring a high amount of O2 ( 10 L) mentions he feels better, less congested, bringing up less phlegm , no CP , has had urinary retention (>800 cc), no fevers , no abdominal pain - Constitutional Vitals: Temp Pulse Resp BP Pulse Ox 98.4 F 67 16 113/70 94 02/19/17 08:30 02/19/17 08:30 02/19/17 08:30 02/19/17 08:30 02/19/17 08:30 General appearance: Present: A&O X 3 - Head Head exam: Present: atraumatic, normocephalic - Eye Eye exam: Present: PERRL, conjuntiva pink, sclera anicteric Pupils: Present: PERRL - Neck Neck exam general surgery: Present: supple, trachea midline. Absent: lymphadenopathy - Respiratory Respiratory exam: Present: CTAB, rales (less diffuse crackles). Absent: accessory muscle use, rhonchi, wheezes - Cardiovascular Cardiovascular exam: Present: RRR, +S1, +S2. Absent: diastolic murmur, gallop, rubs, systolic murmur - GI/Abdominal GI/Abdominal exam: Present: normal bowel sounds, soft, no peritoneal signs. Absent: distended, tenderness - Extremities Exam Extremities exam: Present: warm, radial pulses palpable and symmetrical. Absent : calf tenderness, cyanotic, pedal edema - Neurological Exam Neurological exam: Present: CN II-XII intact, oriented X3, no focal deficits. Absent: pronater drift, facial droop, speech deficit - Skin Skin exam: Present: dry, intact Additional comments: prater in place Internal Medicine: Result - Labs CBC & Chem 7: 02/19/17 02:58 02/19/17 02:58 Labs: Short CBC 02/19/17 Range/Units 02:58 WBC 14.2 H (4.3-11.1) K/mcL Hgb 10.1 L D (12.9-16.9) g/dL Hct 29.4 L (37.5-50.1) % Plt Count 277 (140-400) K/mcL BMP 02/19/17 02:58 Sodium 138 Potassium 3.6 Chloride 105 Carbon Dioxide 25 BUN 37 H D Creatinine 1.31 H Glucose 146 H Calcium 8.3 L - ABG Interpretation ABG results: PT/INR, D-dimer PT 14.4 Seconds (9.4-12.1) H 02/17/17 13:41 Consult Discharge Plan - Plan Referrals: Bhavani King, LUCHO [Primary Care Provider] - 02/28/17 1:00 pm (Please follow up as schedule...)
[2017-02-19] MEDS: Cefepime HCl 1,000 MG in D5% in Water (Mini-Bag+) 100 ML IVPB SCH (11:13)
[2017-02-19 11:46] LABS: ABG Base Excess 2.4 mEq/L (-2.0 to 3.0); ABG HCO3 26 mEq/L (21-27); ABG Oxygen Saturation 95 % (95-98); ABG PCO2 38 mmHg (35-45); ABG PH 7.45 pH Units (7.32-7.45); ABG PO2 73 mmHg (85-104); ABG TCO2 28 mEq/L (20-26)
[2017-02-19 11:47] LABS: Blood Gas Liter Flow 10 L/MIN; Blood Gas Modality HIGHFLOWNC
[2017-02-19] MEDS: Azithromycin 500 MG in D5% in Water 250 ML IVPB SCH (12:05)
[2017-02-19] MEDS ORDERED: Levofloxacin 750 MG/150 ML 750 MG/150 ML BAG IVPB SCH (15:00)
[2017-02-19] MEDS: Isosorbide MONOnitrate (24 HR) 60 MG TAB.ER.24H PO SCH (18:12)
[2017-02-19] MEDS: Metoprolol XL (24 HR) Succ 50 MG TAB.ER.24H PO SCH (18:12)
[2017-02-19] MEDS: Mirtazapine 15 MG TABLET PO SCH (21:06)
[2017-02-19] MEDS ORDERED: GuaiFENesin/Codeine Oral Soln 5 ML UDC PO PRN (21:12)
[2017-02-20] MEDS: Ipratropium/Albuterol Neb 3 ML IH SCH ×4 (03:47→22:15)
[2017-02-20 04:57] LABS: Hematocrit 32.9 % (37.5-50.1); Hemoglobin 10.7 g/dL (12.9-16.9); Mean Corpuscular HGB Conc 32.5 g/dL (31.6-35.5); Mean Corpuscular Hemoglobin 29.5 pg (28.0-33.3); Mean Corpuscular Volume 90.6 fL (83.0-100.0); Mean Platelet Volume 10.2 fL (9.4-12.4); Platelet Count 352 K/mcL (140-400); Red Blood Count 3.63 M/mcL (4.19-5.50); Red Cell Distribution Width 12.9 % (11.5-14.5)
[2017-02-20 05:13] LABS: BUN/Creatinine Ratio 30 (6-26); Blood Urea Nitrogen 38 mg/dL (8-26); Calcium 8.7 mg/dL (8.6-10.8); Carbon Dioxide 26 mEq/L (19-29); Chloride 106 mEq/L (98-109); Glucose 118 mg/dL (70-99); Osmolality,Calculated 298 (280-300); Potassium 3.7 mEq/L (3.5-4.5); Sodium 139 mEq/L (136-145); eGFR For African Americans > 60 (> 60); eGFR For Non-African Americans 55 (> 60)
[2017-02-20] MEDS: *HR* Heparin 5,000 UNIT/ML VIAL SQ SCH ×3 (05:50→21:07)
[2017-02-20] MEDS ORDERED: Furosemide 20 MG/2 ML VIAL IVP SCH (09:00)
--- NOTE | 2017-02-20 09:12 | Internal Med Progress Note ---
Date of Encounter: 02/20/17 Time of Encounter: 09:09 - Assessment and plan (1) Acute and chronic respiratory failure Current Visit: Yes Status: Acute Assessment and plan: acute on chronic hypoxic respiratory failure likely secondary to atypical pneumonia in combination with acute pulmonary edema due to acute systolic CHF exacerbated by urinary retention Discontinued Levaquin (received 1 dose upon admision and was prescried q48h per pharmacy) , Continue Cefepime and azithromycin day 2 Start solumedrol Decreased Lasix IV down to 20 mg daily , strict I's and O's and daily weight echocardiogram showed EF of 40% (better than before 35%) repeat CXR showed progreesion of possible infectious process , order ABG and CT chest case discussed with Pulm attending, may place formal consult if oxigen not improving ( the patient feels clinically better) CT ches showed pulmonary fibrosis and multifocal PNA with ground glass opacities Qualifiers: Respiratory failure complication: hypoxia Qualified Code(s): J96.21 - Acute and chronic respiratory failure with hypoxia (2) Systolic CHF Current Visit: Yes Status: Acute Assessment and plan: lasix Qualifiers: Congestive heart failure chronicity: acute on chronic Qualified Code(s): I50.23 - Acute on chronic systolic (congestive) heart failure (3) Atrial fibrillation Current Visit: No Status: Acute Assessment and plan: metoprolol Qualifiers: Atrial fibrillation type: paroxysmal Qualified Code(s): I48.0 - Paroxysmal atrial fibrillation (4) COPD (chronic obstructive pulmonary disease) Current Visit: No Status: Chronic Assessment and plan: solumedrol Qualifiers: COPD type: emphysema Emphysema type: unspecified Qualified Code(s): J43.9 - Emphysema, unspecified (5) Hyperlipidemia Current Visit: No Status: Chronic Qualifiers: Hyperlipidemia type: pure hypercholesterolemia Qualified Code(s): E78.00 - Pure hypercholesterolemia, unspecified; E78.0 - Pure hypercholesterolemia (6) Pneumonia Current Visit: Yes Status: Acute Qualifiers: Pneumonia type: due to unspecified organism Laterality: bilateral Lung location: unspecified part of lung Qualified Code(s): J18.9 - Pneumonia, unspecified organism (7) Hypokalemia Current Visit: Yes Status: Acute Assessment and plan: resolved (8) Acute renal failure (ARF) Current Visit: Yes Status: Acute Assessment and plan: likely from diuresis and urinary obstruction Prater in place, decrease dose of lasix Qualifiers: Acute renal failure type: unspecified Qualified Code(s): N17.9 - Acute kidney failure, unspecified - Subjective Interval history: Still requiring a high amount of O2 but less than yesterday ( 8 L) mentions he feels better, less congested, bringing up more phlegm , no CP , had urinary retention (>800 cc), no fevers, no abdominal pain - Constitutional Vitals: Temp Pulse Resp BP Pulse Ox 98.1 F 69 16 117/54 91 02/20/17 07:00 02/20/17 07:00 02/20/17 07:00 02/20/17 07:00 02/20/17 07:00 General appearance: Present: A&O X 3 Exam: - Head Head exam: Present: atraumatic, normocephalic - Eye Eye exam: Present: PERRL, conjuntiva pink, sclera anicteric Pupils: Present: PERRL - Neck Neck exam general surgery: Present: supple, trachea midline. Absent: lymphadenopathy - Respiratory Respiratory exam: Present: CTAB, rales (less diffuse crackles). Absent: accessory muscle use, rhonchi, wheezes - Cardiovascular Cardiovascular exam: Present: RRR, +S1, +S2. Absent: diastolic murmur, gallop, rubs, systolic murmur - GI/Abdominal GI/Abdominal exam: Present: normal bowel sounds, soft, no peritoneal signs. Absent: distended, tenderness - Extremities Exam Extremities exam: Present: warm, radial pulses palpable and symmetrical. Absent : calf tenderness, cyanotic, pedal edema - Neurological Exam Neurological exam: Present: CN II-XII intact, oriented X3, no focal deficits. Absent: pronater drift, facial droop, speech deficit - Skin Skin exam: Present: dry, intact Additional comments: prater in place Internal Medicine: Result - Labs CBC & Chem 7: 02/20/17 04:34 02/20/17 04:34 Labs: Short CBC 02/20/17 Range/Units 04:34 WBC 15.8 H (4.3-11.1) K/mcL Hgb 10.7 L (12.9-16.9) g/dL Hct 32.9 L (37.5-50.1) % Plt Count 352 (140-400) K/mcL BMP 02/20/17 04:34 Sodium 139 Potassium 3.7 Chloride 106 Carbon Dioxide 26 BUN 38 H Creatinine 1.27 H Glucose 118 H Calcium 8.7 - ABG Interpretation ABG results: ABG ABG pH 7.45 pH Units (7.32-7.45) 02/19/17 11:35 ABG pCO2 38 mmHg (35-45) 02/19/17 11:35 ABG pO2 73 mmHg (85-104) L 02/19/17 11:35 ABG O2 Saturation 95 % (95-98) 02/19/17 11:35 PT/INR, D-dimer PT 14.4 Seconds (9.4-12.1) H 02/17/17 13:41 - Impressions Impressions Chest CT 02/19/17 09:26 IMPRESSION: 1. Ground-glass consolidation throughout the left upper lobe. Small areas of ground-glass opacity in the posterior right upper lobe. Findings are most compatible with pneumonia. Follow-up chest CT suggested in 3-6 months. 2. Moderate right lower lobe atelectasis and mild left lower lobe atelectasis. 3. Findings of pulmonary fibrosis/UIP with minimal worsening of the fibrosis. 4. Small left pleural effusion and trace right pleural effusion. RECOMMENDATIONS: Fleischner Society guidelines for follow-up and management of incidentally detected subsolid pulmonary nodules: Multiple subsolid nodules > than or equal to 6 mm - CT at 3-6 months. Subsequent management based on the most suspicious nodule(s). - Low risk patients include individuals with minimal or absent history of smoking and other known risk factors. - High risk patients include individuals with a history or smoking or known risk factors. Radiology 2017 http://pubs.rsna.org/doi/full/10.1148/radiol.[email or web address] D/ / 02/19/2017 11:22:38 Mendez Oneal MD / Jordyn Dumont Interpreting Provider: Mendez Oneal MD Consult Discharge Plan - Plan Referrals: Bhavani King BELT PRESS OPERATOR [Primary Care Provider] - 02/28/17 1:00 pm (Please follow up as schedule...)
[2017-02-20] MEDS: Finasteride 5 MG TABLET PO SCH (09:45)
[2017-02-20] MEDS: Aspirin Enteric Coated 325 MG Tablet PO SCH (09:45)
[2017-02-20] MEDS: Cefepime HCl 1,000 MG in D5% in Water (Mini-Bag+) 100 ML IVPB SCH (09:46)
[2017-02-20] MEDS: MethylPREDNISolone 40 MG/ML VIAL IVP SCH ×2 (09:46→21:07)
[2017-02-20] MEDS: amLODIPine 5 MG TABLET PO SCH (09:47)
[2017-02-20] MEDS: Azithromycin 500 MG in D5% in Water 250 ML IVPB SCH (10:32)
[2017-02-20] MEDS: Metoprolol XL (24 HR) Succ 50 MG TAB.ER.24H PO SCH (17:42)
[2017-02-20] MEDS: Isosorbide MONOnitrate (24 HR) 60 MG TAB.ER.24H PO SCH (17:42)
[2017-02-20] MEDS: Mirtazapine 15 MG TABLET PO SCH (21:07)
[2017-02-21 04:53] LABS: Hematocrit 33.5 % (37.5-50.1); Mean Corpuscular HGB Conc 32.8 g/dL (31.6-35.5); Mean Corpuscular Hemoglobin 29.7 pg (28.0-33.3); Mean Corpuscular Volume 90.5 fL (83.0-100.0); Mean Platelet Volume 10.4 fL (9.4-12.4); Platelet Count 368 K/mcL (140-400); Red Cell Distribution Width 12.9 % (11.5-14.5)
[2017-02-21] MEDS: Ipratropium/Albuterol Neb 3 ML IH SCH ×4 (04:56→22:08)
[2017-02-21 05:05] LABS: BUN/Creatinine Ratio 31 (6-26); Blood Urea Nitrogen 41 mg/dL (8-26); Calcium 8.6 mg/dL (8.6-10.8); Carbon Dioxide 27 mEq/L (19-29); Chloride 104 mEq/L (98-109); Glucose 162 mg/dL (70-99); Osmolality,Calculated 302 (280-300); Sodium 139 mEq/L (136-145); eGFR For African Americans > 60 (> 60); eGFR For Non-African Americans 53 (> 60)
[2017-02-21] MEDS: *HR* Heparin 5,000 UNIT/ML VIAL SQ SCH ×3 (06:08→20:58)
--- NOTE | 2017-02-21 08:33 | Internal Med Progress Note ---
Date of Encounter: 02/21/17 Time of Encounter: 08:30 - Assessment and plan (1) Acute and chronic respiratory failure Current Visit: Yes Status: Acute Assessment and plan: acute on chronic hypoxic respiratory failure likely secondary to atypical pneumonia in combination with acute pulmonary edema due to acute systolic CHF exacerbated by urinary retention Discontinued Levaquin (received 1 dose upon admision and was prescried q48h per pharmacy) , Continue Cefepime and azithromycin day 3 Continue solumedrol Kreis Lasix IV up to 20 mg twice a day , strict I's and O's and daily weight echocardiogram showed EF of 40% (better than before 35%) CXR showed progreesion of possible infectious process , order ABG and CT chest case discussed with Pulm attending, place formal consult as oxigenation is not improving ( the patient feels clinically better) CT ches showed pulmonary fibrosis and multifocal PNA with ground glass opacities Qualifiers: Respiratory failure complication: hypoxia Qualified Code(s): J96.21 - Acute and chronic respiratory failure with hypoxia (2) Systolic CHF Current Visit: Yes Status: Acute Assessment and plan: lasix Qualifiers: Congestive heart failure chronicity: acute on chronic Qualified Code(s): I50.23 - Acute on chronic systolic (congestive) heart failure (3) Atrial fibrillation Current Visit: No Status: Acute Assessment and plan: metoprolol Qualifiers: Atrial fibrillation type: paroxysmal Qualified Code(s): I48.0 - Paroxysmal atrial fibrillation (4) COPD (chronic obstructive pulmonary disease) Current Visit: No Status: Chronic Assessment and plan: solumedrol Qualifiers: COPD type: emphysema Emphysema type: unspecified Qualified Code(s): J43.9 - Emphysema, unspecified (5) Hyperlipidemia Current Visit: No Status: Chronic Qualifiers: Hyperlipidemia type: pure hypercholesterolemia Qualified Code(s): E78.00 - Pure hypercholesterolemia, unspecified; E78.0 - Pure hypercholesterolemia (6) Pneumonia Current Visit: Yes Status: Acute Qualifiers: Pneumonia type: due to unspecified organism Laterality: bilateral Lung location: unspecified part of lung Qualified Code(s): J18.9 - Pneumonia, unspecified organism (7) Hypokalemia Current Visit: Yes Status: Acute Assessment and plan: resolved (8) Acute renal failure (ARF) Current Visit: Yes Status: Acute Assessment and plan: likely from diuresis and urinary obstruction, will require urology follow-up as outpatient Witt in place Qualifiers: Acute renal failure type: unspecified Qualified Code(s): N17.9 - Acute kidney failure, unspecified - Subjective Interval history: Still requiring a high amount of O2 ( 15 L) mentions he feels better, less congested, bringing up more phlegm , no CP , had urinary retention (>800 cc), no fevers, no abdominal pain - Constitutional Vitals: Temp Pulse Resp BP Pulse Ox 98.0 F 72 18 124/67 93 02/21/17 06:33 02/21/17 06:33 02/21/17 06:33 02/21/17 06:33 02/21/17 06:33 General appearance: Present: A&O X 3 - Head Head exam: Present: atraumatic, normocephalic - Eye Eye exam: Present: PERRL, conjuntiva pink, sclera anicteric Pupils: Present: PERRL - Neck Neck exam general surgery: Present: supple, trachea midline. Absent: lymphadenopathy - Respiratory Respiratory exam: Present: CTAB, rales (Diffuse crackles). Absent: accessory muscle use, rhonchi, wheezes - Cardiovascular Cardiovascular exam: Present: RRR, +S1, +S2. Absent: diastolic murmur, gallop, rubs, systolic murmur - GI/Abdominal GI/Abdominal exam: Present: normal bowel sounds, soft, no peritoneal signs. Absent: distended, tenderness - Extremities Exam Extremities exam: Present: warm, radial pulses palpable and symmetrical. Absent : calf tenderness, cyanotic, pedal edema - Neurological Exam Neurological exam: Present: CN II-XII intact, oriented X3, no focal deficits. Absent: pronater drift, facial droop, speech deficit - Skin Skin exam: Present: dry, intact Internal Medicine: Result - Labs CBC & Chem 7: 02/21/17 04:11 02/21/17 04:11 Labs: Short CBC 02/21/17 Range/Units 04:11 WBC 12.3 H (4.3-11.1) K/mcL Hgb 11.0 L (12.9-16.9) g/dL Hct 33.5 L (37.5-50.1) % Plt Count 368 (140-400) K/mcL BMP 02/21/17 04:11 Sodium 139 Potassium 4.0 Chloride 104 Carbon Dioxide 27 BUN 41 H Creatinine 1.31 H Glucose 162 H Calcium 8.6 - ABG Interpretation ABG results: ABG ABG pH 7.45 pH Units (7.32-7.45) 02/19/17 11:35 ABG pCO2 38 mmHg (35-45) 02/19/17 11:35 ABG pO2 73 mmHg (85-104) L 02/19/17 11:35 ABG O2 Saturation 95 % (95-98) 02/19/17 11:35 PT/INR, D-dimer PT 14.4 Seconds (9.4-12.1) H 02/17/17 13:41 Consult Discharge Plan - Plan Referrals: Bhavani King ARCHITECTURE CONSULTANT [Primary Care Provider] - 02/28/17 1:00 pm (Please follow up as schedule...)
--- NOTE | 2017-02-21 08:38 | Pulmonology Consult Note ---
Date of Encounter: 02/21/17 Time of Encounter: 08:38 Assessment and Plan (1) Acute and chronic respiratory failure Current Visit: Yes Status: Acute In conclusion 77-year-old gentleman with acute on chronic hypoxic respiratory failure which appears to be mediated by pneumonia with likely exacerbation of idiopathic pulmonary fibrosis. I discussed that case with the patient and I explained that overall mortality for exacerbation of IPF is actually relatively high and extremely high if there is progression to need for mechanical ventilation. While there has not been any specific treatment that has been associated with convincing statistical improvement in the standard treatments include glucocorticoids, antimicrobials if infection is suspected, and in general a net negative fluid balance and treatment of gastroesophageal reflux disease which may be associated with disease progression. In general patient would benefit from bronchoscopy to rule out more unusual infectious etiologies however given high requirement of oxygen I suspect he is too unstable to undergo this and had a high risk of progression to need for mechanical ventilation at present. Recs: -Continue supplemental oxygen to keep saturation greater than 88%. Incentive spirometry out of bed to chair ambulation as tolerated call be helpful. In addition patient may benefit from positive airway pressure support for work of breathing and/or improvement in oxygenation (CPAP vs BiPAP). -Continue antimicrobials to treat for around 7 days based upon clinical response I think his current antimicrobial regimen is adequate it would be useful to obtain a respiratory viral panel if not already done -Increased his proton pump inhibitor to twice a day dosing -Started N-acetylcysteine orally -Chemical DVT prophylaxis while inpatient unless contraindication arises -Agree with continued diuresis for a net negative fluid balance of 0.5-1 L negative as tolerated by kidney function I see in general his kidney function is getting worse and so this would have to be monitored closely and it may be that continue diuresis as more harmful than helpful His overall prognosis is poor and it would be very reasonable to involve palliative care for ongoing goals of care discussion and I am happy to be involved in these discussions as well and we will try to come back and speak with his when she returns to the hospital later today. I discussed my findings and recommendations directly with the primary hospitalist Dr. Estevez. Qualifiers: Respiratory failure complication: hypoxia Qualified Code(s): J96.21 - Acute and chronic respiratory failure with hypoxia (2) Idiopathic pulmonary fibrosis Current Visit: Yes Status: Acute (3) Pneumonia Current Visit: Yes Status: Acute Qualifiers: Pneumonia type: due to unspecified organism Laterality: bilateral Lung location: unspecified part of lung Qualified Code(s): J18.9 - Pneumonia, unspecified organism (4) Chronic systolic (congestive) heart failure Current Visit: No Status: Chronic History of Present Illness Consult date: 02/21/17 Requesting physician: Fabian Steele Chief complaint: Shortness of breath History of present illness: This is a pleasant 77-year-old gentleman past medical history of heart failure. Reduced ejection fraction and idiopathic pulmonary fibrosis who presented for worsening shortness of breath noted to have acute hypoxic respiratory failure requiring high levels of oxygen supplementation session including up to 15 L via OxiMax. Also noted to have radiographic findings suggestive of acute pneumonia. He has been treated with antimicrobials and steroid and despite this he has not seen any significant improvement in fact function requirements have increased over the last 48 hours. Pulmonary was consulted for further evaluation and recommendations for this. In general lung function has been deteriorating he was enrolled in pulmonary rehabilitation however he was unable to continue this because of worsening dyspnea. He is a former smoker but quit many years ago Worked in [employer] in part of a large [employer] complex No exotic pets No recent travel Denies sick contacts Past Med Surg Social Fam HX - Past Medical History Medical history: arthritis, atrial fibrillation, COPD, coronary artery disease, hyperlipidemia, hypertension, myocardial infarction, other Psychiatric history: depression - Past Surgical History Surgical History: coronary bypass (CABG) - Social History Smoking Status: Former smoker Smokeless Tobacco Status: No Alcohol use: occasionally Drug use: none - Family History Mother Family Member Ethnicity: Non- Living Status: Hx Family Cardiac Disorders: Yes Medications and Allergies Albuterol Sulfate [Ventolin Hfa] 2 puff IH Q4-6H PRN 02/25/15 [History] Allopurinol [Zyloprim] 300 mg PO BID 02/25/15 [History] Finasteride [Proscar] 5 mg PO DAILY 02/25/15 [History] Fluticasone Propionate Nasal [Flonase] 2 spray NS DAILY 02/25/15 [History] Fluticasone/Salmeterol [Advair 500-50 Diskus] 1 each IH BID 02/25/15 [History] Ipratropium/Albuterol Neb [Duoneb] 3 ml IH Q6HR PRN 02/25/15 [History] Isosorbide MONOnitrate (24 HR) [Imdur] 60 mg PO QPM 02/25/15 [History] Nitroglycerin 0.4 mg SL Q5MIN PRN 02/25/15 [History] Simvastatin [Zocor] 40 mg PO HS 02/25/15 [History] Aspirin [Ecotrin] 325 mg PO DAILY 07/06/16 [History] Desloratadine 5 mg PO DAILY 07/06/16 [History] Lisinopril [Zestril] 10 mg PO QAM 07/06/16 [History] Metoprolol Succinate 100 mg PO QPM 07/06/16 [History] Ascorbic Acid [Vitamin C] 500 mg PO DAILY 02/17/17 [History] Tramadol HCl [Ultram] 50 mg PO QID PRN 02/17/17 [History] Vitamin E Acid Succinate [Vitamin E] 400 units PO DAILY 02/17/17 [History] amLODIPine [Norvasc] 5 mg PO DAILY 02/17/17 [History] 3 Allergy/AdvReac Type Severity Reaction Status Date / Time No Known Allergies Allergy Verified 07/06/16 13:27 All Systems: A 10-system review of systems was performed and is negative for pertinent findings except as documented above in the HPI. Physical Examination Vital Signs: Vital Signs, Last 4 Hours Temp Pulse Resp BP Pulse Ox 02/21/17 06:33 98.0 F 72 18 124/67 93 02/21/17 05:01 97.5 F L 60 16 119/71 90 02/21/17 04:56 16 90 General appearance: no acute distress Eyes: nonicteric ENT: oropharynx moist Auscultation: bilateral: rales (Inspiratory Velcro crackles), rhonchi (Rhonchi scattered throughout both lung reese) Cardiovascular: regular rate and rhythm Gastrointestinal: normoactive bowel sounds, tender Integumentary: normal Extremities: no cyanosis, no edema, no clubbing normal mental status, non-focal exam mood appropriate Results - Laboratory Findings CBC and BMP: 02/21/17 04:11 02/21/17 04:11 ABG ABG pH 7.45 pH Units (7.32-7.45) 02/19/17 11:35 ABG pCO2 38 mmHg (35-45) 02/19/17 11:35 ABG pO2 73 mmHg (85-104) L 02/19/17 11:35 ABG O2 Saturation 95 % (95-98) 02/19/17 11:35 PT/INR, D-dimer PT 14.4 Seconds (9.4-12.1) H 02/17/17 13:41 Abnormal lab findings: Abnormal lab results WBC 12.3 K/mcL (4.3-11.1) H 02/21/17 04:11 RBC 3.70 M/mcL (4.19-5.50) L 02/21/17 04:11 Hgb 11.0 g/dL (12.9-16.9) L 02/21/17 04:11 Hct 33.5 % (37.5-50.1) L 02/21/17 04:11 Neutrophils # 11.1 K/mcL (1.6-8.9) H 02/17/17 13:41 PT 14.4 Seconds (9.4-12.1) H 02/17/17 13:41 ABG pO2 73 mmHg (85-104) L 02/19/17 11:35 ABG Total CO2 28 mEq/L (20-26) H 02/19/17 11:35 BUN 41 mg/dL (8-26) H 02/21/17 04:11 Creatinine 1.31 mg/dL (0.72-1.25) H 02/21/17 04:11 Est GFR (Non-Af Amer) 53 (> 60) L 02/21/17 04:11 BUN/Creatinine Ratio 31 (6-26) H 02/21/17 04:11 Glucose 162 mg/dL (70-99) H 02/21/17 04:11 Calculated Osmolality 302 (280-300) H 02/21/17 04:11 Lactic Acid 2.8 mmol/L (0.5-2.2) H 02/17/17 16:13 Direct Bilirubin 0.6 mg/dL (0.0-0.5) H 02/17/17 13:41 Troponin I 0.05 ng/mL (0-0.03) H* 02/17/17 13:41 Albumin 2.6 g/dL (3.5-5.0) L 02/17/17 13:41 Globulin 4.0 g/dL (2.4-3.5) H 02/17/17 13:41 Albumin/Globulin Ratio 0.7 (1.1-2.2) L 02/17/17 13:41 Urine Protein 30 mg/dL (Neg-Trace) H 02/18/17 09:16 Urine Microscopic RBC 5-15 per hpf (0-3) H 02/18/17 09:16 Ur Squamous Epith Cells Moderate per lpf (None-Few) H 02/18/17 09:16 - Microbiology Findings Microbiology Findings: Microbiology, Last 48 Hours 02/20/17 14:13 Sputum Culture - Preliminary Sputum - Diagnostic Findings Chest x-ray: report reviewed, image reviewed CT scan - chest: report reviewed, image reviewed - Clinical Findings Intake & Output: Intake & Output 02/20/17 02/21/17 02/21/17 23:59 07:59 15:59 Intake Total 950 / 950 0 / 0 Balance 950 / 950 0 / 0 Weight 66.3 kg Consult Discharge Plan - Plan Referrals: Bhavani King TRACTOR ENGINE ASSEMBLER [Primary Care Provider] - 02/28/17 1:00 pm (Please follow up as schedule...)
[2017-02-21] MEDS ORDERED: predniSONE 20 MG TABLET PO SCH (09:15)
[2017-02-21] MEDS: amLODIPine 5 MG TABLET PO SCH (09:30)
[2017-02-21] MEDS: Finasteride 5 MG TABLET PO SCH (09:31)
[2017-02-21] MEDS: Aspirin Enteric Coated 325 MG Tablet PO SCH (09:31)
[2017-02-21] MEDS: Azithromycin 500 MG in D5% in Water 250 ML IVPB SCH (09:31)
[2017-02-21] MEDS: Cefepime HCl 1,000 MG in D5% in Water (Mini-Bag+) 100 ML IVPB SCH (09:32)
[2017-02-21] MEDS: Furosemide 20 MG/2 ML VIAL IVP SCH ×2 (09:35→17:49)
[2017-02-21] MEDS: *HR* Acetylcysteine 20% 600 MG/3 ML ORAL SYRINGE PO SCH ×2 (10:19→21:34)
[2017-02-21] MEDS: Isosorbide MONOnitrate (24 HR) 60 MG TAB.ER.24H PO SCH (16:58)
[2017-02-21] MEDS: Metoprolol XL (24 HR) Succ 50 MG TAB.ER.24H PO SCH (16:58)
[2017-02-21] MEDS: Mirtazapine 15 MG TABLET PO SCH (20:57)
[2017-02-22] MEDS: Ipratropium/Albuterol Neb 3 ML IH SCH ×4 (03:23→21:05)
[2017-02-22 05:23] LABS: Basophils % 0.2 %; Hematocrit 33.2 % (37.5-50.1); Hemoglobin 10.9 g/dL (12.9-16.9); Immature Granulocytes % 1.1 % (0-4); Lymphocytes # 0.6 K/mcL (0.6-4.6); Lymphocytes % 3.2 %; Mean Corpuscular HGB Conc 32.8 g/dL (31.6-35.5); Mean Corpuscular Hemoglobin 29.5 pg (28.0-33.3); Mean Platelet Volume 10.4 fL (9.4-12.4); Monocytes # 0.7 K/mcL (0.0-1.3); Monocytes % 3.8 %; Platelet Count 398 K/mcL (140-400); Red Blood Count 3.69 M/mcL (4.19-5.50); Red Cell Distribution Width 12.8 % (11.5-14.5); Segmented Neutrophils % 91.7 %
[2017-02-22 06:02] LABS: Calcium 8.5 mg/dL (8.6-10.8); Potassium 3.5 mEq/L (3.5-4.5)
[2017-02-22] MEDS: *HR* Heparin 5,000 UNIT/ML VIAL SQ SCH ×3 (06:43→21:21)
[2017-02-22] MEDS: amLODIPine 5 MG TABLET PO SCH (08:42)
[2017-02-22] MEDS: Aspirin Enteric Coated 325 MG Tablet PO SCH (08:43)
[2017-02-22] MEDS: Cefepime HCl 2,000 MG in D5% in Water (Mini-Bag+) 100 ML IVPB SCH (08:43)
[2017-02-22] MEDS: Finasteride 5 MG TABLET PO SCH (08:43)
[2017-02-22] MEDS: Furosemide 20 MG/2 ML VIAL IVP SCH ×2 (08:45→15:55)
[2017-02-22] MEDS ORDERED: predniSONE 20 MG TABLET PO SCH (09:15)
--- NOTE | 2017-02-22 09:52 | Pulmonology Progress Note ---
Date of Encounter: 02/22/17 Time of Encounter: 09:49 Assessment and Plan (1) Acute and chronic respiratory failure Current Visit: Yes Status: Acute Hypoxemic respiratory failure is multifactorial including underlying interstitial lung disease (idiopathic pulmonary fibrosis) heart failure with reduced ejection fraction and appears to be acute exacerbation of IPF likely mediated by pneumonia. Encouragingly oxygen saturations have improved slightly over the last 24 hours and I think he can be weaned down from 15 L oxygen mask to much more reasonable oxygen setting such as 10L or below. To keep oxygen saturation greater than 88%. I have encouraged the patient to engage in activities that increase lung recruitment including getting out of bed to chair incentive spirometry and ambulation was nursing staff once deemed safe to do so. Qualifiers: Respiratory failure complication: hypoxia Qualified Code(s): J96.21 - Acute and chronic respiratory failure with hypoxia (2) Idiopathic pulmonary fibrosis Current Visit: Yes Status: Acute Underlying IPF with acute flare and I have started approximately 1 minute per Ferrera of enteral prednisone to help with this treatment. Could consider bronchoscopy when oxygen requirements have improved to evaluate for more rare/ atypical infections (3) Pneumonia Current Visit: Yes Status: Acute Likely acute pneumonia which is precipitated IPF flare. Agree with continuation of antimicrobials to treat for a total of 7-8 days thus far cultures have been negative including respiratory infectious panel. Qualifiers: Pneumonia type: due to unspecified organism Laterality: bilateral Lung location: unspecified part of lung Qualified Code(s): J18.9 - Pneumonia, unspecified organism (4) Chronic systolic (congestive) heart failure Current Visit: No Status: Chronic Euvolemic on exam renal function continues to decline I do not think that further diuresis would be helpful at this time and would aim for a net even to slightly positive fluid status over next 24 hours. I will defer to the primary medicine service for ongoing monitoring of renal function and electrolyte replacements Subjective Principal diagnosis: Pneumonia Interval history: Overnight says his breathing has improved a bit overall oxygen saturation on that same monitor his been consistently in mid 90s. And he feels that his breathing a bit easier. Objective PUL Vital signs: Last Vital Signs Temp 98.1 F 02/22/17 07:40 Pulse 67 02/22/17 07:40 Resp 20 02/22/17 09:38 BP 131/51 02/22/17 07:40 Pulse Ox 92 02/22/17 09:38 General appearance: no acute distress Auscultation: bilateral: rales, rhonchi (Scattered) Cardiovascular: regular rate and rhythm Gastrointestinal: normoactive bowel sounds Extremities: no edema normal mental status, non-focal exam Results - Laboratory Findings CBC and BMP: 02/22/17 04:42 02/22/17 04:42 ABG ABG pH 7.45 pH Units (7.32-7.45) 02/19/17 11:35 ABG pCO2 38 mmHg (35-45) 02/19/17 11:35 ABG pO2 73 mmHg (85-104) L 02/19/17 11:35 ABG O2 Saturation 95 % (95-98) 02/19/17 11:35 PT/INR, D-dimer PT 14.4 Seconds (9.4-12.1) H 02/17/17 13:41 Abnormal lab findings: Abnormal lab results WBC 17.4 K/mcL (4.3-11.1) H 02/22/17 04:42 RBC 3.69 M/mcL (4.19-5.50) L 02/22/17 04:42 Hgb 10.9 g/dL (12.9-16.9) L 02/22/17 04:42 Hct 33.2 % (37.5-50.1) L 02/22/17 04:42 Neutrophils # 16.0 K/mcL (1.6-8.9) H 02/22/17 04:42 PT 14.4 Seconds (9.4-12.1) H 02/17/17 13:41 ABG pO2 73 mmHg (85-104) L 02/19/17 11:35 ABG Total CO2 28 mEq/L (20-26) H 02/19/17 11:35 BUN 51 mg/dL (8-26) H 02/22/17 04:42 Creatinine 1.58 mg/dL (0.72-1.25) H 02/22/17 04:42 Est GFR ( Amer) 52 (> 60) L 02/22/17 04:42 Est GFR (Non-Af Amer) 43 (> 60) L 02/22/17 04:42 BUN/Creatinine Ratio 32 (6-26) H 02/22/17 04:42 Glucose 174 mg/dL (70-99) H 02/22/17 04:42 Calculated Osmolality 312 (280-300) H 02/22/17 04:42 Lactic Acid 2.8 mmol/L (0.5-2.2) H 02/17/17 16:13 Calcium 8.5 mg/dL (8.6-10.8) L 02/22/17 04:42 Direct Bilirubin 0.6 mg/dL (0.0-0.5) H 02/17/17 13:41 Troponin I 0.05 ng/mL (0-0.03) H* 02/17/17 13:41 Albumin 2.6 g/dL (3.5-5.0) L 02/17/17 13:41 Globulin 4.0 g/dL (2.4-3.5) H 02/17/17 13:41 Albumin/Globulin Ratio 0.7 (1.1-2.2) L 02/17/17 13:41 Urine Protein 30 mg/dL (Neg-Trace) H 02/18/17 09:16 Urine Microscopic RBC 5-15 per hpf (0-3) H 02/18/17 09:16 Ur Squamous Epith Cells Moderate per lpf (None-Few) H 02/18/17 09:16 - Microbiology Findings Microbiology Findings: Microbiology, Last 48 Hours 02/20/17 14:13 Sputum Culture - Final Sputum - Clinical Findings Intake & Output: Intake & Output 02/21/17 02/22/17 02/22/17 23:59 07:59 15:59 Intake Total 120 / 120 30 / 30 Output Total 600 / 600 225 / 225 Balance 120 / 120 -600 / -600 -195 / -195 Weight 65.4 kg Consult Discharge Plan - Plan Referrals: Bhavani King, ELECTRONIC SYSTEMS SECURITY ASSESSMENT [Primary Care Provider] - 02/28/17 1:00 pm (Please follow up as schedule...)
[2017-02-22] MEDS ORDERED: Azithromycin 250 MG TABLET PO SCH (10:00)
[2017-02-22 10:14] LABS: Adenovirus Not Detected (Not Detect); Bordetella Pertussis Not Detected (Not Detect); Chlamydophila pneumoniae Not Detected (Not Detect); Coronavirus 229E Not Detected (Not Detect); Coronavirus HKU1 Not Detected (Not Detect); Coronavirus NL63 Not Detected (Not Detect); Coronavirus OC43 Not Detected (Not Detect); Human Metapneumovirus Not Detected (Not Detect); Human Rhinovirus/Enterovirus Not Detected (Not Detect); Influenza A Subtype 2009 H1 Not Detected (Not Detect); Influenza A Untypeable Not Detected (Not Detect); Influenza B Not Detected (Not Detect); Mycoplasma pneumoniae Not Detected (Not Detect); Parainfluenza Virus 1 Not Detected (Not Detect); Parainfluenza Virus 2 Not Detected (Not Detect); Parainfluenza Virus 3 Not Detected (Not Detect); Parainfluenza Virus 4 Not Detected (Not Detect); Respiratory Syncytial Virus Not Detected (Not Detect)
--- NOTE | 2017-02-22 14:34 | Internal Med Progress Note ---
Date of Encounter: 02/22/17 Time of Encounter: 14:30 - Assessment and plan (1) Acute and chronic respiratory failure Current Visit: Yes Status: Acute Assessment and plan: acute on chronic hypoxic respiratory failure likely secondary to atypical pneumonia in combination with acute pulmonary edema due to acute systolic CHF exacerbated by urinary retention, possible IPF Discontinued Levaquin (received 1 dose upon admission,was prescribed q48h per pharmacy) , Continue Cefepime day 4 COmpleted 4 days of azithromycin Continue prednisone continue Lasix IV up to 20 mg twice a day , strict I's and O's and daily weight echocardiogram showed EF of 40% (better than before 35%) CXR showed progression of possible infectious process , Pulmonary following the case CT of the chest showed pulmonary fibrosis and multifocal PNA with ground glass opacities Qualifiers: Respiratory failure complication: hypoxia Qualified Code(s): J96.21 - Acute and chronic respiratory failure with hypoxia (2) Systolic CHF Current Visit: Yes Status: Acute Assessment and plan: lasix Qualifiers: Congestive heart failure chronicity: acute on chronic Qualified Code(s): I50.23 - Acute on chronic systolic (congestive) heart failure (3) Atrial fibrillation Current Visit: No Status: Acute Assessment and plan: metoprolol Qualifiers: Atrial fibrillation type: paroxysmal Qualified Code(s): I48.0 - Paroxysmal atrial fibrillation (4) COPD (chronic obstructive pulmonary disease) Current Visit: No Status: Chronic Assessment and plan: prednisone Qualifiers: COPD type: emphysema Emphysema type: unspecified Qualified Code(s): J43.9 - Emphysema, unspecified (5) Hyperlipidemia Current Visit: No Status: Chronic Qualifiers: Hyperlipidemia type: pure hypercholesterolemia Qualified Code(s): E78.00 - Pure hypercholesterolemia, unspecified; E78.0 - Pure hypercholesterolemia (6) Pneumonia Current Visit: Yes Status: Acute Qualifiers: Pneumonia type: due to unspecified organism Laterality: bilateral Lung location: unspecified part of lung Qualified Code(s): J18.9 - Pneumonia, unspecified organism (7) Hypokalemia Current Visit: Yes Status: Acute Assessment and plan: resolved (8) Acute renal failure (ARF) Current Visit: Yes Status: Acute Assessment and plan: likely from diuresis and urinary obstruction, will require urology follow-up as outpatient Witt in place Qualifiers: Acute renal failure type: unspecified Qualified Code(s): N17.9 - Acute kidney failure, unspecified - Subjective Interval history: Requiring less oxygen, mentions he feels better, less congested, bringing up S phlegm , no CP , had urinary retention (>800 cc), no fevers, no abdominal pain - Constitutional Vitals: Temp Pulse Resp BP Pulse Ox 98.5 F 76 16 116/74 91 02/22/17 11:38 02/22/17 11:38 02/22/17 11:38 02/22/17 11:38 02/22/17 11:38 General appearance: Present: A&O X 3 - Head Head exam: Present: atraumatic, normocephalic - Eye Eye exam: Present: PERRL, conjuntiva pink, sclera anicteric Pupils: Present: PERRL - Neck Neck exam general surgery: Present: supple, trachea midline. Absent: lymphadenopathy - Respiratory Respiratory exam: Present: CTAB, rales (Diffuse crackles and rhonchi). Absent: accessory muscle use, rhonchi, wheezes - Cardiovascular Cardiovascular exam: Present: RRR, +S1, +S2. Absent: diastolic murmur, gallop, rubs, systolic murmur - GI/Abdominal GI/Abdominal exam: Present: normal bowel sounds, soft, no peritoneal signs. Absent: distended, tenderness - Extremities Exam Extremities exam: Present: warm, radial pulses palpable and symmetrical. Absent : calf tenderness, cyanotic, pedal edema - Neurological Exam Neurological exam: Present: CN II-XII intact, oriented X3, no focal deficits. Absent: pronater drift, facial droop, speech deficit - Skin Skin exam: Present: dry, intact Internal Medicine: Result - Labs CBC & Chem 7: 02/22/17 04:42 02/22/17 04:42 Labs: Short CBC 02/22/17 Range/Units 04:42 WBC 17.4 H (4.3-11.1) K/mcL Hgb 10.9 L (12.9-16.9) g/dL Hct 33.2 L (37.5-50.1) % Plt Count 398 (140-400) K/mcL Neutrophils # 16.0 H (1.6-8.9) K/mcL BMP 02/22/17 04:42 Sodium 142 Potassium 3.5 Chloride 104 Carbon Dioxide 27 BUN 51 H Creatinine 1.58 H Glucose 174 H Calcium 8.5 L - ABG Interpretation ABG results: ABG ABG pH 7.45 pH Units (7.32-7.45) 02/19/17 11:35 ABG pCO2 38 mmHg (35-45) 02/19/17 11:35 ABG pO2 73 mmHg (85-104) L 02/19/17 11:35 ABG O2 Saturation 95 % (95-98) 02/19/17 11:35 PT/INR, D-dimer PT 14.4 Seconds (9.4-12.1) H 02/17/17 13:41 Consult Discharge Plan - Plan Referrals: Bhavani King, [facility] [Primary Care Provider] - 02/28/17 1:00 pm (Please follow up as schedule...)
[2017-02-22] MEDS: Isosorbide MONOnitrate (24 HR) 60 MG TAB.ER.24H PO SCH (18:41)
[2017-02-22] MEDS: Metoprolol XL (24 HR) Succ 50 MG TAB.ER.24H PO SCH (18:41)
[2017-02-22] MEDS: Mirtazapine 15 MG TABLET PO SCH (21:20)
[2017-02-23] MEDS: Ipratropium/Albuterol Neb 3 ML IH SCH ×4 (03:49→21:06)
[2017-02-23] MEDS: *HR* Heparin 5,000 UNIT/ML VIAL SQ SCH ×3 (06:35→21:50)
[2017-02-23] MEDS: Finasteride 5 MG TABLET PO SCH (07:40)
[2017-02-23] MEDS: Cefepime HCl 2,000 MG in D5% in Water (Mini-Bag+) 100 ML IVPB SCH (07:40)
[2017-02-23] MEDS: Furosemide 20 MG/2 ML VIAL IVP SCH (07:41)
[2017-02-23] MEDS: Aspirin Enteric Coated 325 MG Tablet PO SCH (07:41)
[2017-02-23] MEDS: amLODIPine 5 MG TABLET PO SCH (07:41)
--- NOTE | 2017-02-23 10:04 | Internal Med Progress Note ---
Date of Encounter: 02/23/17 Time of Encounter: 10:02 - Assessment and plan (1) Acute and chronic respiratory failure Current Visit: Yes Status: Acute Assessment and plan: acute on chronic hypoxic respiratory failure likely secondary to atypical pneumonia in combination with acute pulmonary edema due to acute systolic CHF exacerbated by urinary retention, possible IPF Discontinued Levaquin (received 1 dose upon admission,was prescribed q48h per pharmacy) , Continue Cefepime day 5 COmpleted 4 days of azithromycin Send sputum sulture Continue prednisone decrease Lasix IV to 20 mg daily , strict I's and O's and daily weight echocardiogram showed EF of 40% (better than before 35%) CXR showed progression of possible infectious process , Pulmonary following the case CT of the chest showed pulmonary fibrosis and multifocal PNA with ground glass opacities Qualifiers: Respiratory failure complication: hypoxia Qualified Code(s): J96.21 - Acute and chronic respiratory failure with hypoxia (2) Systolic CHF Current Visit: Yes Status: Acute Assessment and plan: lasix Qualifiers: Congestive heart failure chronicity: acute on chronic Qualified Code(s): I50.23 - Acute on chronic systolic (congestive) heart failure (3) Atrial fibrillation Current Visit: No Status: Acute Assessment and plan: metoprolol Qualifiers: Atrial fibrillation type: paroxysmal Qualified Code(s): I48.0 - Paroxysmal atrial fibrillation (4) COPD (chronic obstructive pulmonary disease) Current Visit: No Status: Chronic Assessment and plan: prednisone Qualifiers: COPD type: emphysema Emphysema type: unspecified Qualified Code(s): J43.9 - Emphysema, unspecified (5) Hyperlipidemia Current Visit: No Status: Chronic Qualifiers: Hyperlipidemia type: pure hypercholesterolemia Qualified Code(s): E78.00 - Pure hypercholesterolemia, unspecified; E78.0 - Pure hypercholesterolemia (6) Pneumonia Current Visit: Yes Status: Acute Qualifiers: Pneumonia type: due to unspecified organism Laterality: bilateral Lung location: unspecified part of lung Qualified Code(s): J18.9 - Pneumonia, unspecified organism (7) Hypokalemia Current Visit: Yes Status: Acute Assessment and plan: resolved (8) Acute renal failure (ARF) Current Visit: Yes Status: Acute Assessment and plan: likely from diuresis and urinary obstruction, will require urology follow-up as outpatient Witt in place hold lisinopril and allopurinol Qualifiers: Acute renal failure type: unspecified Qualified Code(s): N17.9 - Acute kidney failure, unspecified - Subjective Interval history: Requiring 10 L again, mentions he tired, sounds very congested, bringing up phlegm , no CP , had urinary retention (>800 cc), no fevers, no abdominal pain - Constitutional Vitals: Temp Pulse Resp BP Pulse Ox 98.3 F 89 18 136/75 95 02/23/17 07:41 02/23/17 07:41 02/23/17 07:41 02/23/17 07:41 02/23/17 07:56 General appearance: Present: A&O X 3 Exam: Head Head exam: Present: atraumatic, normocephalic - Eye Eye exam: Present: PERRL, conjuntiva pink, sclera anicteric Pupils: Present: PERRL - Neck Neck exam general surgery: Present: supple, trachea midline. Absent: lymphadenopathy - Respiratory Respiratory exam: Present: CTAB, rales (Diffuse crackles and rhonchi). Absent: accessory muscle use, rhonchi, wheezes - Cardiovascular Cardiovascular exam: Present: RRR, +S1, +S2. Absent: diastolic murmur, gallop, rubs, systolic murmur - GI/Abdominal GI/Abdominal exam: Present: normal bowel sounds, soft, no peritoneal signs. Absent: distended, tenderness - Extremities Exam Extremities exam: Present: warm, radial pulses palpable and symmetrical. Absent : calf tenderness, cyanotic, pedal edema - Neurological Exam Neurological exam: Present: CN II-XII intact, oriented X3, no focal deficits. Absent: pronater drift, facial droop, speech deficit - Skin Skin exam: Present: dry, intact Witt catheter in place Internal Medicine: Result - Labs CBC & Chem 7: 02/22/17 04:42 02/22/17 04:42 - ABG Interpretation ABG results: ABG ABG pH 7.45 pH Units (7.32-7.45) 02/19/17 11:35 ABG pCO2 38 mmHg (35-45) 02/19/17 11:35 ABG pO2 73 mmHg (85-104) L 02/19/17 11:35 ABG O2 Saturation 95 % (95-98) 02/19/17 11:35 PT/INR, D-dimer PT 14.4 Seconds (9.4-12.1) H 02/17/17 13:41 Consult Discharge Plan - Plan Referrals: Bhavani King CNP [Primary Care Provider] - 02/28/17 1:00 pm (Please follow up as schedule...)
[2017-02-23] MEDS: predniSONE 20 MG TABLET PO SCH (12:13)
[2017-02-23] MEDS ORDERED: Sodium Chloride for inhalation 3 ML VIAL IH ONE (13:32)
--- NOTE | 2017-02-23 15:10 | Palliative - Consult Note ---
Date of Encounter: 02/23/17 Time of Encounter: 14:00 - Assessment and Plan (1) COPD (chronic obstructive pulmonary disease) Current Visit: No Status: Chronic Assessment and plan: Combination of CHF and COPD with atypical pneumonia. Patient is on bronchodilators and diuretics as well as Qualifiers: COPD type: emphysema Emphysema type: unspecified Qualified Code(s): J43.9 - Emphysema, unspecified (2) Constipation Current Visit: Yes Status: Acute Assessment and plan: It is not uncommon for the patient to go 4-5 days between bowel movements. We will start him on a bowel regimen. Qualifiers: Constipation type: slow transit constipation Qualified Code(s): K59.01 - Slow transit constipation (3) Goals of care, counseling/discussion Current Visit: Yes Status: Acute Assessment and plan: Full discussion with the patient, results in him want to be a full code, but he does not wish to be on a long-term ventilator. Therefore no trach no pain. He has discussed this with his who is his medical power of environmental attorney. He has done advanced directives. Bring in medical power of environmental attorney paperwork tomorrow. Ultimate goal is to return home. (4) Dyspnea Current Visit: No Status: Acute Assessment and plan: Continue oxygen, appendectomy dilators, diuretics and antibiotics. Plan per hospitalist team Qualifiers: Dyspnea type: shortness of breath Qualified Code(s): R06.02 - Shortness of breath; R06.00 - Dyspnea, unspecified; R06.01 - Orthopnea (5) Pneumonia Current Visit: Yes Status: Acute Assessment and plan: Continue antibiotics for probable atypical pneumonia. Plan per hospitalist team Qualifiers: Pneumonia type: due to unspecified organism Laterality: bilateral Lung location: unspecified part of lung Qualified Code(s): J18.9 - Pneumonia, unspecified organism Palliative-CN HPI - Data of Consult Patient: new to practice Requesting Physician: Fabian Steele Primary Care Provider: Bhavani King CNP - Consult Narrative Palliative Care/Comfort Measures: Palliative care History of present illness: Mr. Heck is a 77 year old male With her history of pulmonary fibrosis for approximately the last 5 years. The patient is on 2 L/m of oxygen at home last 6 months has noticed a increase in his fatigue with exertion in the have the oxygen on at all times. He particularly notices that he gets very fatigued in the shower. Interestingly, he does not feel particularly short of breath of breath is reflected in his fatigue. Over the last week he has had a very increased cough with sputum production but no real fever or chills at times she coughs to the point of nearly vomiting but only feels a little bit nauseated. Appetite is somewhat off but this is primarily because for the last 6 months food just does not have much taste for him. He states that it is very common for him to go 4-5 days between bowel movements as well. Denies any pain with any of this. And again he emphasizes he does not have a difficulty with shortness of breath but rather with fatigue. Understands that he has pulmonary fibrosis and that this disease is going to cause him to pass away however he feels that he still has some time left to enjoy CC: Fabian Steele cough and fatigue Past Med Surg Social Fam HX - Past Medical History Medical history: arthritis, atrial fibrillation, COPD, coronary artery disease, hyperlipidemia, hypertension, myocardial infarction, other Psychiatric history: depression - Past Surgical History Surgical History: coronary bypass (CABG) - Social History Smoking Status: Former smoker Smokeless Tobacco Status: No Alcohol use: occasionally Drug use: none - Family History Mother Family Member Ethnicity: Non- Living Status: Hx Family Cardiac Disorders: Yes Medications and Allergies Albuterol Sulfate [Ventolin Hfa] 2 puff IH Q4-6H PRN 02/25/15 [History] Allopurinol [Zyloprim] 300 mg PO BID 02/25/15 [History] Finasteride [Proscar] 5 mg PO DAILY 02/25/15 [History] Fluticasone Propionate Nasal [Flonase] 2 spray NS DAILY 02/25/15 [History] Fluticasone/Salmeterol [Advair 500-50 Diskus] 1 each IH BID 02/25/15 [History] Ipratropium/Albuterol Neb [Duoneb] 3 ml IH Q6HR PRN 02/25/15 [History] Isosorbide MONOnitrate (24 HR) [Imdur] 60 mg PO QPM 02/25/15 [History] Nitroglycerin 0.4 mg SL Q5MIN PRN 02/25/15 [History] Simvastatin [Zocor] 40 mg PO HS 02/25/15 [History] Aspirin [Ecotrin] 325 mg PO DAILY 07/06/16 [History] Desloratadine 5 mg PO DAILY 07/06/16 [History] Lisinopril [Zestril] 10 mg PO QAM 07/06/16 [History] Metoprolol Succinate 100 mg PO QPM 07/06/16 [History] Ascorbic Acid [Vitamin C] 500 mg PO DAILY 02/17/17 [History] Tramadol HCl [Ultram] 50 mg PO QID PRN 02/17/17 [History] Vitamin E Acid Succinate [Vitamin E] 400 units PO DAILY 02/17/17 [History] amLODIPine [Norvasc] 5 mg PO DAILY 02/17/17 [History] 3 Allergy/AdvReac Type Severity Reaction Status Date / Time No Known Allergies Allergy Verified 07/06/16 13:27 - Constitutional Constitutional ROS PAL: decreased appetite, anorexia, fatigue, no chills, no fever(s) - EENT Eyes: no discharge, no pain Ears: no ear discharge, no ear pain Ears, nose, mouth, throat: no facial pain, no hoarseness, no lip swelling, no mouth pain - Cardiovascular Cardiovascular ROS: dyspnea on exertion, no chest pain, no chest pain at rest, no chest pain with activity, no edema - Respiratory Respiratory: cough, dyspnea, dyspnea on exertion, wheezing, chest congestion, excessive phlegm production, no pain on inspiration - Gastrointestinal Gastrointestinal: constipation, nausea, no diarrhea, no vomiting - Genitourinary Genitourinary ROS male: no urinary frequency, no urinary hesitancy, no urinary incontinence - Musculoskeletal Musculoskeletal ROS IM: no back pain, no joint swelling, no muscle weakness - Integumentary ROS Integumentary: no skin pain, no skin ulcer, no sores - Neurological Neurological ROS: no burning sensations, no confusion, no convulsions, no disequilibrium - Psychiatric Psychiatric general PM: change in appetite, no depression, no difficulty concentrating, no homicidal ideation - Endocrine Endocrine IM: other (No thyroid no diabetes) Palliative Care-Exam - Constitutional Vitals: Temp Pulse Resp BP Pulse Ox 97.9 F 86 19 120/66 91 02/23/17 11:09 02/23/17 11:09 02/23/17 11:09 02/23/17 11:09 02/23/17 11:09 General appearance: Present: no acute distress, thin - Head Head Exam: Present: atraumatic - Eye Eye exam: Present: EOMI, normal appearance - ENT ENT exam: Present: mucous membranes moist - Respiratory Respiratory exam: Present: decreased breath sounds, rhonchi, wheezes - Cardiovascular Cardiovascular exam: Present: RRR - GI/Abdominal Exam GI/Abdominal exam: Present: normal bowel sounds, soft. Absent: tenderness - Catheter Type: Urethral (Witt) - Extremities Exam Extremities exam: Present: normal inspection. Absent: pedal edema, tenderness - Neurological Exam Neurological exam: Present: alert, oriented X3 - Psychiatric Psychiatric exam: Present: normal affect, normal mood. Absent: agitated, anxious - Skin Skin exam: Present: dry, warm Internal Medicine - CN: Reslt - Labs CBC & Chem 7: 02/22/17 04:42 02/22/17 04:42 - ABG Interpretation ABG results: ABG ABG pH 7.45 pH Units (7.32-7.45) 02/19/17 11:35 ABG pCO2 38 mmHg (35-45) 02/19/17 11:35 ABG pO2 73 mmHg (85-104) L 02/19/17 11:35 ABG O2 Saturation 95 % (95-98) 02/19/17 11:35 PT/INR, D-dimer PT 14.4 Seconds (9.4-12.1) H 02/17/17 13:41 Consult Discharge Plan - Plan Referrals: Bhavani King, KOSHER BUTCHER [Primary Care Provider] - 02/28/17 1:00 pm (Please follow up as schedule...) Palliative Quality Palliative Quality: Screen for Code Status: Yes, Screen for Goals of Care: Yes, Screen for Pain: Yes, If Pain Regimen Started, Initiate Bowel Regimen: Yes, Screen for Nausea/Vomitting: Yes
[2017-02-23] MEDS: Piperacillin/Tazobactam 3.375 GM in D5% in Water (Mini-Bag+) 100 ML IVPB SCH (16:03)
[2017-02-23] MEDS: Metoprolol XL (24 HR) Succ 50 MG TAB.ER.24H PO SCH (17:09)
[2017-02-23] MEDS: Isosorbide MONOnitrate (24 HR) 60 MG TAB.ER.24H PO SCH (17:09)
[2017-02-23] MEDS: Sennosides/Docusate Sodium TABLET PO SCH (21:48)
[2017-02-23] MEDS: Mirtazapine 15 MG TABLET PO SCH (21:49)
[2017-02-24] MEDS: Piperacillin/Tazobactam 3.375 GM in D5% in Water (Mini-Bag+) 100 ML IVPB SCH ×4 (00:14→23:45)
[2017-02-24] MEDS: Ipratropium/Albuterol Neb 3 ML IH SCH ×4 (03:43→22:15)
[2017-02-24 04:29] LABS: Hematocrit 32.8 % (37.5-50.1); Hemoglobin 11.1 g/dL (12.9-16.9); Mean Corpuscular HGB Conc 33.8 g/dL (31.6-35.5); Mean Corpuscular Hemoglobin 29.8 pg (28.0-33.3); Mean Corpuscular Volume 87.9 fL (83.0-100.0); Mean Platelet Volume 10.3 fL (9.4-12.4); Platelet Count 351 K/mcL (140-400); Red Blood Count 3.73 M/mcL (4.19-5.50); Red Cell Distribution Width 12.9 % (11.5-14.5)
[2017-02-24 04:49] LABS: Calcium 8.6 mg/dL (8.6-10.8); Potassium 3.5 mEq/L (3.5-4.5)
[2017-02-24] MEDS: *HR* Heparin 5,000 UNIT/ML VIAL SQ SCH ×3 (06:29→22:01)
--- NOTE | 2017-02-24 07:38 | Palliative Progress Note ---
Date of Encounter: 02/24/17 Time of Encounter: 07:20 - Assessment and plan (1) COPD (chronic obstructive pulmonary disease) Current Visit: No Status: Chronic Assessment and plan: Continue current medications, plan per hospitalist team Qualifiers: COPD type: emphysema Emphysema type: unspecified Qualified Code(s): J43.9 - Emphysema, unspecified (2) Constipation Current Visit: Yes Status: Acute Assessment and plan: No BM as of yet, its common for the patient to go 4-5 days between bowel movements, regimen has just gotten started we will continue to watch. He is having no discomfort. Qualifiers: Constipation type: slow transit constipation Qualified Code(s): K59.01 - Slow transit constipation (3) Goals of care, counseling/discussion Current Visit: Yes Status: Acute Assessment and plan: Full code as per discussion yesterday. Goals of care to return home. Family bringing in medical power of transactional attorney paperwork sometime this morning. I will make copies of this for the record and for them as well. (4) Dyspnea Current Visit: No Status: Acute Assessment and plan: Doing better this morning, continue current meds plan per hospitalist team Qualifiers: Dyspnea type: shortness of breath Qualified Code(s): R06.02 - Shortness of breath; R06.00 - Dyspnea, unspecified; R06.01 - Orthopnea (5) Pneumonia Current Visit: Yes Status: Acute Assessment and plan: All cultures negative, no fever, white count trending down. Patient is on antibiotics plan per hospitalist team Qualifiers: Pneumonia type: due to unspecified organism Laterality: bilateral Lung location: unspecified part of lung Qualified Code(s): J18.9 - Pneumonia, unspecified organism - Time Spent With Patient Total time spent is greater than 50% in coordination of care (as documented) at patient's floor/unit and/or counseling patient: - Subjective Interval history: The patient reports having had some difficulty earlier, however this is now resolved complaints at this time. Questions with regards to discussion yesterday. - Constitutional Vitals: Abnormal lab results WBC 12.8 K/mcL (4.3-11.1) H 02/24/17 04:20 RBC 3.73 M/mcL (4.19-5.50) L 02/24/17 04:20 Hgb 11.1 g/dL (12.9-16.9) L 02/24/17 04:20 Hct 32.8 % (37.5-50.1) L 02/24/17 04:20 Neutrophils # 16.0 K/mcL (1.6-8.9) H 02/22/17 04:42 PT 14.4 Seconds (9.4-12.1) H 02/17/17 13:41 ABG pO2 73 mmHg (85-104) L 02/19/17 11:35 ABG Total CO2 28 mEq/L (20-26) H 02/19/17 11:35 BUN 56 mg/dL (8-26) H 02/24/17 04:20 Creatinine 1.76 mg/dL (0.72-1.25) H 02/24/17 04:20 Est GFR ( Amer) 45 (> 60) L 02/24/17 04:20 Est GFR (Non-Af Amer) 38 (> 60) L 02/24/17 04:20 BUN/Creatinine Ratio 32 (6-26) H 02/24/17 04:20 Glucose 172 mg/dL (70-99) H 02/24/17 04:20 Calculated Osmolality 312 (280-300) H 02/24/17 04:20 Lactic Acid 2.8 mmol/L (0.5-2.2) H 02/17/17 16:13 Direct Bilirubin 0.6 mg/dL (0.0-0.5) H 02/17/17 13:41 Troponin I 0.05 ng/mL (0-0.03) H* 02/17/17 13:41 Albumin 2.6 g/dL (3.5-5.0) L 02/17/17 13:41 Globulin 4.0 g/dL (2.4-3.5) H 02/17/17 13:41 Albumin/Globulin Ratio 0.7 (1.1-2.2) L 02/17/17 13:41 Urine Protein 30 mg/dL (Neg-Trace) H 02/18/17 09:16 Urine Microscopic RBC 5-15 per hpf (0-3) H 02/18/17 09:16 Ur Squamous Epith Cells Moderate per lpf (None-Few) H 02/18/17 09:16 General appearance: Present: no acute distress - Head Head exam: Present: atraumatic, normal inspection - ENT ENT exam: Present: mucous membranes moist - Neck Neck exam: Present: normal inspection - Respiratory Respiratory exam: Present: decreased breath sounds, rales - Cardiovascular Cardiovascular exam: Present: irregular rhythm - GI/Abdominal GI/Abdominal exam: Present: normal bowel sounds, soft. Absent: tenderness - Extremities Exam Extremities exam: Present: normal inspection. Absent: pedal edema, tenderness - Neurological Exam Neurological exam: Present: alert, oriented X3 - Psychiatric Psychiatric exam: Present: normal affect, normal mood. Absent: agitated, anxious - Skin Skin exam: Present: dry, warm Palliative Quality Palliative Quality: Screen for Code Status: Yes, Screen for Goals of Care: Yes, Screen for Pain: Yes, If Pain Regimen Started, Initiate Bowel Regimen: Yes, Screen for Nausea/Vomitting: Yes - Labs CBC & Chem 7: 02/24/17 04:20 02/24/17 04:20 Labs: Laboratory Results - last 24 hr 02/24/17 02/24/17 04:20 04:20 WBC 12.8 H RBC 3.73 L Hgb 11.1 L Hct 32.8 L MCV 87.9 MCH 29.8 MCHC 33.8 RDW 12.9 Plt Count 351 MPV 10.3 Sodium 141 Potassium 3.5 Chloride 104 Carbon Dioxide 29 BUN 56 H Creatinine 1.76 H Est GFR ( Amer) 45 L Est GFR (Non-Af Amer) 38 L BUN/Creatinine Ratio 32 H Glucose 172 H Calculated Osmolality 312 H Calcium 8.6 - ABG Interpretation ABG results: ABG ABG pH 7.45 pH Units (7.32-7.45) 02/19/17 11:35 ABG pCO2 38 mmHg (35-45) 02/19/17 11:35 ABG pO2 73 mmHg (85-104) L 02/19/17 11:35 ABG O2 Saturation 95 % (95-98) 02/19/17 11:35 PT/INR, D-dimer PT 14.4 Seconds (9.4-12.1) H 02/17/17 13:41 Consult Discharge Plan - Plan Referrals: Bhavani King, [employer] [Primary Care Provider] - 02/28/17 1:00 pm (Please follow up as schedule...)
[2017-02-24] MEDS: amLODIPine 5 MG TABLET PO SCH (08:15)
[2017-02-24] MEDS: Finasteride 5 MG TABLET PO SCH (08:15)
[2017-02-24] MEDS: Sennosides/Docusate Sodium TABLET PO SCH ×2 (08:16→22:01)
[2017-02-24] MEDS: Furosemide 20 MG/2 ML VIAL IVP SCH (08:16)
[2017-02-24] MEDS: Aspirin Enteric Coated 325 MG Tablet PO SCH (08:16)
--- NOTE | 2017-02-24 08:18 | Pulmonology Progress Note ---
Date of Encounter: 02/24/17 Time of Encounter: 08:18 Assessment and Plan (1) Acute and chronic respiratory failure Current Visit: Yes Status: Acute Hypoxemic respiratory failure is multifactorial including underlying interstitial lung disease (idiopathic pulmonary fibrosis) heart failure with reduced ejection fraction and appears to be acute exacerbation of IPF likely mediated by pneumonia. Encouragingly oxygen saturations have improved slightly over the last 24 hours. Continue to wean FiO2 to keep saturation greater than 88%. Recommend continued out of bed to chair and ambulation also formal PT OT evaluation. Appropriately palliative care services have been consulted for this patient currently his CODE STATUS remains full however patient and his at bedside understand severity of his illness and that this is a terminal disease. I am encouraged by the overall improvement in his clinical course over this week however he remains high risk for further respiratory decompensation in this short to intermediate term and long-term prognosis as aforementioned is poor. Qualifiers: Respiratory failure complication: hypoxia Qualified Code(s): J96.21 - Acute and chronic respiratory failure with hypoxia (2) Idiopathic pulmonary fibrosis Current Visit: Yes Status: Acute Underlying IPF with acute flare and I have started approximately 1mg/kg of ennteral prednisone to help with this treatment. He will need to be [facility] prolonged taper I recommend decreasing steroid by 10 mg weekly he has an appointment to follow-up with me at the end of this month at that time he should be on no lower than 20 mg (3) Pneumonia Current Visit: Yes Status: Acute Likely acute pneumonia which is precipitated IPF flare. Cultures as were negative. I recommendations are to stop antimicrobial therapy at day 8 of total antimicrobial administration since admission. Currently he is receiving Pipracil and tazobactam I do not think the patient has developed an additional pneumonia reflective of hospital associated pneumonia. And assess this antimicrobial choice may be overly broad. Qualifiers: Pneumonia type: due to unspecified organism Laterality: bilateral Lung location: unspecified part of lung Qualified Code(s): J18.9 - Pneumonia, unspecified organism (4) Chronic systolic (congestive) heart failure Current Visit: No Status: Chronic Euvolemic on exam renal function continues to decline I do not think that further diuresis would be helpful at this time and would aim for a net even to slightly positive fluid status over next 24 hours. I will defer to the primary medicine service for ongoing monitoring of renal function and electrolyte replacements (5) ELOY (acute kidney injury) Current Visit: Yes Status: Acute This is likely secondary to volume depletion from diuresis. Recommend renal dose all medications and employing a renal protective strategy. Defer to medicine service for further workup of this Subjective Principal diagnosis: Pneumonia Interval history: Physical breathing is low but better over the last 48 hours. This has been reflected in his oxygen requirement being decreased now is around 9-10 L oxygen as he has been out of bed to chair and using incentive spirometry diligently. He also has been requesting to try to get up and walk with nursing support denies any fevers or chills. Antimicrobials have been brought in yesterday to [facility] Objective PUL Vital signs: Last Vital Signs Temp 98.0 F 02/24/17 06:57 Pulse 71 02/24/17 06:57 Resp 17 02/24/17 06:57 BP 116/71 02/24/17 06:57 Pulse Ox 94 02/24/17 07:21 General appearance: no acute distress Auscultation: bilateral: rales (Coarse inspiratory rales), rhonchi (Scattered throughout lung reese primarily in lung bases) Gastrointestinal: normoactive bowel sounds Extremities: no cyanosis, no edema normal mental status, non-focal exam mood appropriate Results - Laboratory Findings CBC and BMP: 02/24/17 04:20 02/24/17 04:20 ABG ABG pH 7.45 pH Units (7.32-7.45) 02/19/17 11:35 ABG pCO2 38 mmHg (35-45) 02/19/17 11:35 ABG pO2 73 mmHg (85-104) L 02/19/17 11:35 ABG O2 Saturation 95 % (95-98) 02/19/17 11:35 PT/INR, D-dimer PT 14.4 Seconds (9.4-12.1) H 02/17/17 13:41 Abnormal lab findings: Abnormal lab results WBC 12.8 K/mcL (4.3-11.1) H 02/24/17 04:20 RBC 3.73 M/mcL (4.19-5.50) L 02/24/17 04:20 Hgb 11.1 g/dL (12.9-16.9) L 02/24/17 04:20 Hct 32.8 % (37.5-50.1) L 02/24/17 04:20 Neutrophils # 16.0 K/mcL (1.6-8.9) H 02/22/17 04:42 PT 14.4 Seconds (9.4-12.1) H 02/17/17 13:41 ABG pO2 73 mmHg (85-104) L 02/19/17 11:35 ABG Total CO2 28 mEq/L (20-26) H 02/19/17 11:35 BUN 56 mg/dL (8-26) H 02/24/17 04:20 Creatinine 1.76 mg/dL (0.72-1.25) H 02/24/17 04:20 Est GFR ( Amer) 45 (> 60) L 02/24/17 04:20 Est GFR (Non-Af Amer) 38 (> 60) L 02/24/17 04:20 BUN/Creatinine Ratio 32 (6-26) H 02/24/17 04:20 Glucose 172 mg/dL (70-99) H 02/24/17 04:20 Calculated Osmolality 312 (280-300) H 02/24/17 04:20 Lactic Acid 2.8 mmol/L (0.5-2.2) H 02/17/17 16:13 Direct Bilirubin 0.6 mg/dL (0.0-0.5) H 02/17/17 13:41 Troponin I 0.05 ng/mL (0-0.03) H* 02/17/17 13:41 Albumin 2.6 g/dL (3.5-5.0) L 02/17/17 13:41 Globulin 4.0 g/dL (2.4-3.5) H 02/17/17 13:41 Albumin/Globulin Ratio 0.7 (1.1-2.2) L 02/17/17 13:41 Urine Protein 30 mg/dL (Neg-Trace) H 02/18/17 09:16 Urine Microscopic RBC 5-15 per hpf (0-3) H 02/18/17 09:16 Ur Squamous Epith Cells Moderate per lpf (None-Few) H 02/18/17 09:16 - Microbiology Findings Microbiology Findings: Microbiology, Last 48 Hours 02/20/17 14:13 Sputum Culture - Final Sputum - Clinical Findings Intake & Output: Intake & Output 02/23/17 02/24/17 02/24/17 23:59 07:59 15:59 Intake Total 100 / 100 Output Total 1000 / 1000 350 / 350 Balance -900 / -900 -350 / -350 Weight 65 kg Consult Discharge Plan - Plan Referrals: Bhavani King CNP [Primary Care Provider] - 02/28/17 1:00 pm (Please follow up as schedule...)
--- NOTE | 2017-02-24 11:11 | Internal Med Progress Note ---
Date of Encounter: 02/24/17 Time of Encounter: 11:09 - Assessment and plan (1) Acute and chronic respiratory failure Current Visit: Yes Status: Acute Assessment and plan: acute on chronic hypoxic respiratory failure likely secondary to atypical pneumonia in combination with acute pulmonary edema due to acute systolic CHF exacerbated by urinary retention, possible IPF Discontinued Levaquin (received 1 dose upon admission,was prescribed q48h per pharmacy) , Received 5 days of Cefepime Completed 4 days of azithromycin Zosyn day 2 Sputum sulture Continue prednisone decreased Lasix IV to 20 mg daily due to worsening renal failure , strict I's and O's and daily weight echocardiogram showed EF of 40% (better than before 35%) CXR showed progression of possible infectious process , Pulmonary following the case CT of the chest showed pulmonary fibrosis and multifocal PNA with ground glass opacities Qualifiers: Respiratory failure complication: hypoxia Qualified Code(s): J96.21 - Acute and chronic respiratory failure with hypoxia (2) Systolic CHF Current Visit: Yes Status: Acute Assessment and plan: lasix Qualifiers: Congestive heart failure chronicity: acute on chronic Qualified Code(s): I50.23 - Acute on chronic systolic (congestive) heart failure (3) Atrial fibrillation Current Visit: No Status: Acute Assessment and plan: metoprolol Qualifiers: Atrial fibrillation type: paroxysmal Qualified Code(s): I48.0 - Paroxysmal atrial fibrillation (4) COPD (chronic obstructive pulmonary disease) Current Visit: No Status: Chronic Assessment and plan: prednisone Qualifiers: COPD type: emphysema Emphysema type: unspecified Qualified Code(s): J43.9 - Emphysema, unspecified (5) Hyperlipidemia Current Visit: No Status: Chronic Qualifiers: Hyperlipidemia type: pure hypercholesterolemia Qualified Code(s): E78.00 - Pure hypercholesterolemia, unspecified; E78.0 - Pure hypercholesterolemia (6) Pneumonia Current Visit: Yes Status: Acute Qualifiers: Pneumonia type: due to unspecified organism Laterality: bilateral Lung location: unspecified part of lung Qualified Code(s): J18.9 - Pneumonia, unspecified organism (7) Hypokalemia Current Visit: Yes Status: Acute Assessment and plan: resolved (8) Acute renal failure (ARF) Current Visit: Yes Status: Acute Assessment and plan: likely from diuresis and urinary obstruction, will require urology follow-up as outpatient Witt removed Continue to hold lisinopril and allopurinol Qualifiers: Acute renal failure type: unspecified Qualified Code(s): N17.9 - Acute kidney failure, unspecified - Subjective Interval history: Requiring 6 L now, tired, sounds very congested, bringing up phlegm , no CP , had urinary retention (>800 cc), no fevers, no abdominal pain - Constitutional Vitals: Temp Pulse Resp BP Pulse Ox 98.0 F 71 18 116/71 90 02/24/17 06:57 02/24/17 06:57 02/24/17 10:53 02/24/17 06:57 02/24/17 10:53 General appearance: Present: A&O X 3 - Head Head exam: Present: atraumatic, normocephalic - Eye Eye exam: Present: PERRL, conjuntiva pink, sclera anicteric Pupils: Present: PERRL - Neck Neck exam general surgery: Present: supple, trachea midline. Absent: lymphadenopathy - Respiratory Respiratory exam: Present: CTAB, rales (Diffuse crackles and rhonchi). Absent: accessory muscle use, rhonchi, wheezes - Cardiovascular Cardiovascular exam: Present: RRR, +S1, +S2. Absent: diastolic murmur, gallop, rubs, systolic murmur - GI/Abdominal GI/Abdominal exam: Present: normal bowel sounds, soft, no peritoneal signs. Absent: distended, tenderness - Extremities Exam Extremities exam: Present: warm, radial pulses palpable and symmetrical. Absent : calf tenderness, cyanotic, pedal edema - Neurological Exam Neurological exam: Present: CN II-XII intact, oriented X3, no focal deficits. Absent: pronater drift, facial droop, speech deficit - Skin Skin exam: Present: dry, intact Internal Medicine: Result - Labs CBC & Chem 7: 02/24/17 04:20 02/24/17 04:20 Labs: Short CBC 02/24/17 Range/Units 04:20 WBC 12.8 H (4.3-11.1) K/mcL Hgb 11.1 L (12.9-16.9) g/dL Hct 32.8 L (37.5-50.1) % Plt Count 351 (140-400) K/mcL BMP 02/24/17 04:20 Sodium 141 Potassium 3.5 Chloride 104 Carbon Dioxide 29 BUN 56 H Creatinine 1.76 H Glucose 172 H Calcium 8.6 - ABG Interpretation ABG results: ABG ABG pH 7.45 pH Units (7.32-7.45) 02/19/17 11:35 ABG pCO2 38 mmHg (35-45) 02/19/17 11:35 ABG pO2 73 mmHg (85-104) L 02/19/17 11:35 ABG O2 Saturation 95 % (95-98) 02/19/17 11:35 PT/INR, D-dimer PT 14.4 Seconds (9.4-12.1) H 02/17/17 13:41 Consult Discharge Plan - Plan Referrals: Bhavani King, LUCHO [Primary Care Provider] - 02/28/17 1:00 pm (Please follow up as schedule...)
[2017-02-24] MEDS: predniSONE 20 MG TABLET PO SCH (16:09)
[2017-02-24] MEDS: Metoprolol XL (24 HR) Succ 50 MG TAB.ER.24H PO SCH (17:15)
[2017-02-24] MEDS: Isosorbide MONOnitrate (24 HR) 60 MG TAB.ER.24H PO SCH (17:15)
--- NOTE | 2017-02-24 18:24 | Urology - Consult Note ---
Date of Encounter: 02/24/17 Time of Encounter: 18:22 - Assessment and Plan (1) Penile FB Current Visit: Yes Status: Acute Assessment and plan: Patient was prepped and draped in normal sterile fashion. I then was able to use [place]akey forceps and grab the catheter and remove it in its entirety. Patient tolerated well. At this time I recommend to leave the catheter out. If the patient requires another catheter is okay to place any catheter. Please have patient follow up with me in 3-4 weeks after discharge. Qualifiers: Encounter type: initial encounter Qualified Code(s): T19.4XXA - Foreign body in penis, initial encounter Urology CN:HPI Consult date: 02/24/17 Reason for consult Urology: Other (penile foreign body) Requesting physician: Fabian Steele History of present illness: William is a 77-year-old male admitted to the hospital secondary to pneumonia. Patient had indwelling catheter secondary to need for strict I's and O's. Patient is known to me for urinary issues as well as hematuria. Patient was confused earlier today and pulled his catheter and cut the catheter at the meatus. The proximal portion of the catheter was removed and the distal portion with the balloon did not leave the patient's bladder. Past Med Surg Social Fam HX - Past Medical History Medical history: arthritis, atrial fibrillation, COPD, coronary artery disease, hyperlipidemia, hypertension, myocardial infarction, other Psychiatric history: depression - Past Surgical History Surgical History: coronary bypass (CABG) - Social History Smoking Status: Former smoker Smokeless Tobacco Status: No Alcohol use: occasionally Drug use: none - Family History Mother Family Member Ethnicity: Non- Living Status: Hx Family Cardiac Disorders: Yes Medications and Allergies Albuterol Sulfate [Ventolin Hfa] 2 puff IH Q4-6H PRN 02/25/15 [History] Allopurinol [Zyloprim] 300 mg PO BID 02/25/15 [History] Finasteride [Proscar] 5 mg PO DAILY 02/25/15 [History] Fluticasone Propionate Nasal [Flonase] 2 spray NS DAILY 02/25/15 [History] Fluticasone/Salmeterol [Advair 500-50 Diskus] 1 each IH BID 02/25/15 [History] Ipratropium/Albuterol Neb [Duoneb] 3 ml IH Q6HR PRN 02/25/15 [History] Isosorbide MONOnitrate (24 HR) [Imdur] 60 mg PO QPM 02/25/15 [History] Nitroglycerin 0.4 mg SL Q5MIN PRN 02/25/15 [History] Simvastatin [Zocor] 40 mg PO HS 02/25/15 [History] Aspirin [Ecotrin] 325 mg PO DAILY 07/06/16 [History] Desloratadine 5 mg PO DAILY 07/06/16 [History] Lisinopril [Zestril] 10 mg PO QAM 07/06/16 [History] Metoprolol Succinate 100 mg PO QPM 07/06/16 [History] Ascorbic Acid [Vitamin C] 500 mg PO DAILY 02/17/17 [History] Tramadol HCl [Ultram] 50 mg PO QID PRN 02/17/17 [History] Vitamin E Acid Succinate [Vitamin E] 400 units PO DAILY 02/17/17 [History] amLODIPine [Norvasc] 5 mg PO DAILY 02/17/17 [History] 3 Allergy/AdvReac Type Severity Reaction Status Date / Time No Known Allergies Allergy Verified 07/06/16 13:27 Review of Systems - Constitutional no chills - EENT Nose, mouth and throat: no dizziness - Cardiovascular no chest pain - Respiratory as per HPI - Gastrointestinal no abdominal pain - Genitourinary as per HPI Exam Initial Vital Signs Temp Pulse Resp BP Pulse Ox 98.5 F 91 22 153/74 91 02/17/17 13:22 02/17/17 13:22 02/17/17 13:22 02/17/17 13:22 02/17/17 13:22 - General physical appearance Present: well developed - ENT Present: normal nares - Neck Present: no masses - Cardiovascular Cardiovascular exam IM: RRR - Abdomen Abdomen: Present: soft - Genitourinary other (Catheter palpable approximately 4-5 cm from urethral meatus. Unable to manually remove this) - Integumentary Present: no rash Urology Results - Labs 02/24/17 04:20 02/24/17 04:20 Abnormal lab results WBC 12.8 K/mcL (4.3-11.1) H 02/24/17 04:20 RBC 3.73 M/mcL (4.19-5.50) L 02/24/17 04:20 Hgb 11.1 g/dL (12.9-16.9) L 02/24/17 04:20 Hct 32.8 % (37.5-50.1) L 02/24/17 04:20 Neutrophils # 16.0 K/mcL (1.6-8.9) H 02/22/17 04:42 PT 14.4 Seconds (9.4-12.1) H 02/17/17 13:41 ABG pO2 73 mmHg (85-104) L 02/19/17 11:35 ABG Total CO2 28 mEq/L (20-26) H 02/19/17 11:35 BUN 56 mg/dL (8-26) H 02/24/17 04:20 Creatinine 1.76 mg/dL (0.72-1.25) H 02/24/17 04:20 Est GFR ( Amer) 45 (> 60) L 02/24/17 04:20 Est GFR (Non-Af Amer) 38 (> 60) L 02/24/17 04:20 BUN/Creatinine Ratio 32 (6-26) H 02/24/17 04:20 Glucose 172 mg/dL (70-99) H 02/24/17 04:20 Calculated Osmolality 312 (280-300) H 02/24/17 04:20 Lactic Acid 2.8 mmol/L (0.5-2.2) H 02/17/17 16:13 Direct Bilirubin 0.6 mg/dL (0.0-0.5) H 02/17/17 13:41 Troponin I 0.05 ng/mL (0-0.03) H* 02/17/17 13:41 Albumin 2.6 g/dL (3.5-5.0) L 02/17/17 13:41 Globulin 4.0 g/dL (2.4-3.5) H 02/17/17 13:41 Albumin/Globulin Ratio 0.7 (1.1-2.2) L 02/17/17 13:41 Urine Protein 30 mg/dL (Neg-Trace) H 02/18/17 09:16 Urine Microscopic RBC 5-15 per hpf (0-3) H 02/18/17 09:16 Ur Squamous Epith Cells Moderate per lpf (None-Few) H 02/18/17 09:16 Diabetes panel 02/24/17 Range/Units 04:20 Sodium 141 (136-145) mEq/L Potassium 3.5 (3.5-4.5) mEq/L Chloride 104 (98-109) mEq/L Carbon Dioxide 29 (19-29) mEq/L BUN 56 H (8-26) mg/dL Creatinine 1.76 H (0.72-1.25) mg/dL Glucose 172 H (70-99) mg/dL Calcium 8.6 (8.6-10.8) mg/dL Calcium panel 02/24/17 Range/Units 04:20 Calcium 8.6 (8.6-10.8) mg/dL Pituitary panel 02/24/17 Range/Units 04:20 Sodium 141 (136-145) mEq/L Potassium 3.5 (3.5-4.5) mEq/L Chloride 104 (98-109) mEq/L Carbon Dioxide 29 (19-29) mEq/L BUN 56 H (8-26) mg/dL Creatinine 1.76 H (0.72-1.25) mg/dL Glucose 172 H (70-99) mg/dL Calcium 8.6 (8.6-10.8) mg/dL Adrenal panel 02/24/17 Range/Units 04:20 Sodium 141 (136-145) mEq/L Potassium 3.5 (3.5-4.5) mEq/L Chloride 104 (98-109) mEq/L Carbon Dioxide 29 (19-29) mEq/L BUN 56 H (8-26) mg/dL Creatinine 1.76 H (0.72-1.25) mg/dL Glucose 172 H (70-99) mg/dL Calcium 8.6 (8.6-10.8) mg/dL All other labs normal. Consult Discharge Plan - Plan Referrals: Bhavani King CNP [Primary Care Provider] - 02/28/17 1:00 pm (Please follow up as schedule...)
[2017-02-24] MEDS: Mirtazapine 15 MG TABLET PO SCH (22:01)
[2017-02-25] MEDS: Ipratropium/Albuterol Neb 3 ML IH SCH ×2 (04:06→10:27)
[2017-02-25 05:17] LABS: Hemoglobin 11.3 g/dL (12.9-16.9); Mean Corpuscular HGB Conc 33.2 g/dL (31.6-35.5); Mean Corpuscular Hemoglobin 29.7 pg (28.0-33.3); Mean Corpuscular Volume 89.2 fL (83.0-100.0); Mean Platelet Volume 10.7 fL (9.4-12.4); Platelet Count 346 K/mcL (140-400); Red Blood Count 3.81 M/mcL (4.19-5.50); Red Cell Distribution Width 12.8 % (11.5-14.5)
[2017-02-25 05:36] LABS: Calcium 8.6 mg/dL (8.6-10.8); Potassium 3.2 mEq/L (3.5-4.5)
[2017-02-25] MEDS: *HR* Heparin 5,000 UNIT/ML VIAL SQ SCH (06:52)
--- NOTE | 2017-02-25 09:02 | Discharge Summary ---
Date of Encounter: 02/25/17 Time of Encounter: 09:00 - Discharge Diagnosis (1) Acute and chronic respiratory failure Priority: Primary Status: Acute Comments: acute on chronic hypoxic respiratory failure likely secondary to atypical pneumonia in combination with acute pulmonary edema due to acute systolic CHF exacerbated by urinary retention, IPF Discontinued Levaquin (received 1 dose upon admission,was prescribed q48h per pharmacy) , Received 5 days of Cefepime Completed 4 days of azithromycin Completed 3 days of Zosyn after stopping cefepime Has completed 1 week of antibiotics Qualifiers: Respiratory failure complication: hypoxia Qualified Code(s): J96.21 - Acute and chronic respiratory failure with hypoxia (2) Systolic CHF Priority: Primary Status: Acute Qualifiers: Congestive heart failure chronicity: acute on chronic Qualified Code(s): I50.23 - Acute on chronic systolic (congestive) heart failure (3) Atrial fibrillation Priority: Secondary Status: Acute Qualifiers: Atrial fibrillation type: paroxysmal Qualified Code(s): I48.0 - Paroxysmal atrial fibrillation (4) COPD (chronic obstructive pulmonary disease) Priority: Primary Status: Chronic Qualifiers: COPD type: emphysema Emphysema type: unspecified Qualified Code(s): J43.9 - Emphysema, unspecified (5) Hyperlipidemia Priority: Secondary Status: Chronic Qualifiers: Hyperlipidemia type: pure hypercholesterolemia Qualified Code(s): E78.00 - Pure hypercholesterolemia, unspecified; E78.0 - Pure hypercholesterolemia (6) Pneumonia Priority: Primary Status: Acute Qualifiers: Pneumonia type: due to unspecified organism Laterality: bilateral Lung location: unspecified part of lung Qualified Code(s): J18.9 - Pneumonia, unspecified organism (7) Hypokalemia Priority: Secondary Status: Acute (8) Acute renal failure (ARF) Priority: Secondary Status: Acute Qualifiers: Acute renal failure type: unspecified Qualified Code(s): N17.9 - Acute kidney failure, unspecified - Discharge Medications Prescriptions: Furosemide [Lasix] 20 mg PO BID #60 tablet predniSONE [PredniSONE] 10 mg PO Q24H 49 Days tablet Tramadol HCl [Ultram] 50 mg PO QID PRN #20 tablet PRN Reason: Pain Home Medications: Albuterol Sulfate [Ventolin Hfa] 2 puff IH Q4-6H PRN 02/25/15 [History] Allopurinol [Zyloprim] 300 mg PO BID 02/25/15 [History] Finasteride [Proscar] 5 mg PO DAILY 02/25/15 [History] Fluticasone Propionate Nasal [Flonase] 2 spray NS DAILY 02/25/15 [History] Fluticasone/Salmeterol [Advair 500-50 Diskus] 1 each IH BID 02/25/15 [History] Ipratropium/Albuterol Neb [Duoneb] 3 ml IH Q6HR PRN 02/25/15 [History] Isosorbide MONOnitrate (24 HR) [Imdur] 60 mg PO QPM 02/25/15 [History] Nitroglycerin 0.4 mg SL Q5MIN PRN 02/25/15 [History] Simvastatin [Zocor] 40 mg PO HS 02/25/15 [History] Aspirin [Ecotrin] 325 mg PO DAILY 07/06/16 [History] Desloratadine 5 mg PO DAILY 07/06/16 [History] Lisinopril [Zestril] 10 mg PO QAM 07/06/16 [History] Metoprolol Succinate 100 mg PO QPM 07/06/16 [History] Ascorbic Acid [Vitamin C] 500 mg PO DAILY 02/17/17 [History] Vitamin E Acid Succinate [Vitamin E] 400 units PO DAILY 02/17/17 [History] amLODIPine [Norvasc] 5 mg PO DAILY 02/17/17 [History] Acetaminophen [Tylenol] 650 mg PO Q6HR PRN tablet 02/25/17 [Rx] Furosemide [Lasix] 20 mg PO BID #60 tablet 02/25/17 [Rx] Ipratropium/Albuterol Neb [Duoneb] 3 ml IH [id number] inhsol 02/25/17 [Rx] Megestrol Acetate [Megace] 40 mg PO DAILY tablet 02/25/17 [Rx] Potassium Chloride 10 meq PO Q24H #0 tab.er.prt 02/25/17 [Rx] Tramadol HCl [Ultram] 50 mg PO QID PRN #20 tablet 02/25/17 [Rx] predniSONE [PredniSONE] 10 mg PO Q24H 49 Days tablet 02/25/17 [Rx] Allergies/Adverse Reactions: 3 Allergy/AdvReac Type Severity Reaction Status Date / Time No Known Allergies Allergy Verified 07/06/16 13:27 Procedures/tests Complete & Pending: Procedures Performed prior 72 hours Category Date Time Status CT abd pelvis wo no iv no oral [CT] Stat Cat Scan 02/24/17 15:03 Draft Date of admission: 02/18/17 10:06 Primary care physician: Bhavani King CNP Consults: 02/18/17 14:28 Consult to Occupational Therapy [CONS] Routine Comment: Evaluate, develop and implement POC Reason for Consult: eval for poss ecf 02/23/17 13:49 Consult to Palliative Care [CONS] Routine Comment: Consulting Provider: Palliative Care [place] Reason for Consult: per Pulmonology recommendation. Pulmonary fibrosis Call Completed: No 02/24/17 15:48 Consult to Urology [CONS] Routine Consulting Provider: Urology [place] Reason for Consult: patient cut Witt ( still in bladder) Call Completed: Yes 02/25/17 08:21 Consult to Occupational Therapy [CONS] Routine Comment: Evaluate, develop and implement POC Reason for Consult: decline; discharge planning; - Patient Status Disposition: Transfer SNF Condition: Fair Overall status at discharge: patient is progressing back to baseline - Discharge Instructions Follow Up With: Bhavani King CNP [Primary Care Provider] - 02/28/17 1:00 pm (Please follow up as schedule...) Additional Instructions: Continue prednisone 70 mg daily for 7 days and decrease by 10 mg every 7 days. Continue duo nebs and oxygen therapy. Follow-up with pulmonary service within the next 30 days. Continue Lasix - Diet and Activity Activity: increase activity as tolerated, wear oxygen at all times Diet: low fat, low cholesterol Hospital course: Mr. Heck is a 77 year old male with a past medical history of atrial fibrillation (Not on anticoagulation), COPD (Oxygen dependent using 2 L at home) , coronary artery disease, hyperlipidemia, hypertension, myocardial infarction, other (Neuropathy, gout, systolic CHF, depression, atrial fibrillation followed by Dr. Dangelo. Reduced ejection fraction and idiopathic pulmonary fibrosis who presented for worsening shortness of breath noted to have acute hypoxic respiratory failure requiring high levels of oxygen supplementation up to 15 L via OxiMax. Also noted to have radiographic findings suggestive of acute pneumonia. He has been treated with antimicrobials and steroid and despite this he has not seen any significant improvement. Upon admission he was given Levaquin then he was switched to cefepime and azithromycin, was switched again to Zosyn and has completed 7 days of antibiotics Was started on diuretics, decreased Lasix IV due to worsening renal failure, lisinopril and allopurinol were held. Echocardiogram showed EF of 40% (better than before 35%) Despite all treatment, the patient's oxygen requirement continued to be very high for which the pulmonary service was consulted, high dose of prednisone was recommended and a very slow taper due to history of IPF. CT of the chest showed pulmonary fibrosis and multifocal PNA with ground glass opacities During his hospitalization the patient cut his Witt catheter, urology had to be consulted to remove the part was that was in his urethra and bladder which was noticed/evidenced on a CT scan. Has a poor prognosis and long-run, palliative care was consulted but the patient at the moment prefers to be a full code. - Time Spent with Patient Total time spent providing and/or coordinating discharge services: Greater than 30 minutes (40 min) - Constitutional Vitals: Temp Pulse Resp BP Pulse Ox 98.2 F 81 17 122/66 93 02/25/17 06:50 02/25/17 06:50 02/25/17 06:50 02/25/17 06:50 02/25/17 08:42 General appearance: Present: A&O X 3 Exam: - Head Head exam: Present: atraumatic, normocephalic - Eye Eye exam: Present: PERRL, conjuntiva pink, sclera anicteric Pupils: Present: PERRL - Neck Neck exam general surgery: Present: supple, trachea midline. Absent: lymphadenopathy - Respiratory Respiratory exam: Present: CTAB, rales (Diffuse crackles and rhonchi). Absent: accessory muscle use, rhonchi, wheezes - Cardiovascular Cardiovascular exam: Present: RRR, +S1, +S2. Absent: diastolic murmur, gallop, rubs, systolic murmur - GI/Abdominal GI/Abdominal exam: Present: normal bowel sounds, soft, no peritoneal signs. Absent: distended, tenderness - Extremities Exam Extremities exam: Present: warm, radial pulses palpable and symmetrical. Absent : calf tenderness, cyanotic, pedal edema - Neurological Exam Neurological exam: Present: CN II-XII intact, oriented X3, no focal deficits. Absent: pronater drift, facial droop, speech deficit - Skin Skin exam: Present: dry, intact
--- NOTE | 2017-02-25 09:18 | Physician Discharge Referral ---
ExtendedCare Referral Info Provider in Charge after Transfer: PCP Institutional Level of Care: Skilled - Diagnosis (1) Acute and chronic respiratory failure Status: Acute (2) Systolic CHF Status: Acute (3) Atrial fibrillation Status: Acute (4) COPD (chronic obstructive pulmonary disease) Status: Chronic (5) Hyperlipidemia Status: Chronic (6) Pneumonia Status: Acute (7) Hypokalemia Status: Acute (8) Acute renal failure (ARF) Status: Acute - Transfer Medications Prescriptions: Furosemide [Lasix] 20 mg PO BID #60 tablet predniSONE [PredniSONE] 10 mg PO Q24H 49 Days tablet Tramadol HCl [Ultram] 50 mg PO QID PRN #20 tablet PRN Reason: Pain Home Medications: Albuterol Sulfate [Ventolin Hfa] 2 puff IH Q4-6H PRN 02/25/15 [History] Allopurinol [Zyloprim] 300 mg PO BID 02/25/15 [History] Finasteride [Proscar] 5 mg PO DAILY 02/25/15 [History] Fluticasone Propionate Nasal [Flonase] 2 spray NS DAILY 02/25/15 [History] Fluticasone/Salmeterol [Advair 500-50 Diskus] 1 each IH BID 02/25/15 [History] Ipratropium/Albuterol Neb [Duoneb] 3 ml IH Q6HR PRN 02/25/15 [History] Isosorbide MONOnitrate (24 HR) [Imdur] 60 mg PO QPM 02/25/15 [History] Nitroglycerin 0.4 mg SL Q5MIN PRN 02/25/15 [History] Simvastatin [Zocor] 40 mg PO HS 02/25/15 [History] Aspirin [Ecotrin] 325 mg PO DAILY 07/06/16 [History] Desloratadine 5 mg PO DAILY 07/06/16 [History] Lisinopril [Zestril] 10 mg PO QAM 07/06/16 [History] Metoprolol Succinate 100 mg PO QPM 07/06/16 [History] Ascorbic Acid [Vitamin C] 500 mg PO DAILY 02/17/17 [History] Vitamin E Acid Succinate [Vitamin E] 400 units PO DAILY 02/17/17 [History] amLODIPine [Norvasc] 5 mg PO DAILY 02/17/17 [History] Acetaminophen [Tylenol] 650 mg PO Q6HR PRN tablet 02/25/17 [Rx] Furosemide [Lasix] 20 mg PO BID #60 tablet 02/25/17 [Rx] Ipratropium/Albuterol Neb [Duoneb] 3 ml IH [id number] inhsol 02/25/17 [Rx] Megestrol Acetate [Megace] 40 mg PO DAILY tablet 02/25/17 [Rx] Potassium Chloride 10 meq PO Q24H #0 tab.er.prt 02/25/17 [Rx] Tramadol HCl [Ultram] 50 mg PO QID PRN #20 tablet 02/25/17 [Rx] predniSONE [PredniSONE] 10 mg PO Q24H 49 Days tablet 02/25/17 [Rx] Allergies/Adverse Reactions: 3 Allergy/AdvReac Type Severity Reaction Status Date / Time No Known Allergies Allergy Verified 07/06/16 13:27 - Respiratory Orders Smoking Cessation: Smoking cessation has been advised. For more information, call the [employer] Quit Line at 6-423-BERP-NOW. - Advance Directives Code Status: Full Code - Rehabiliation Orders Rehab Orders: Evaluation for Physical Therapy Other: Continue prednisone 70 mg daily for 7 days and decrease by 10 mg every 7 days. Continue duo nebs and oxygen therapy. Follow-up with pulmonary service within the next 30 days. Continue Lasix CERTIFICATION: I certify that the transfer of the above named patient to an Extended Care Facility is necessary for the continuing treatment of the diagnosis listed. The above information is true and accurate reflection of patient's current condition. Confidential - Redisclosure prohibited without a patient's written consent.
[2017-02-25] MEDS: Piperacillin/Tazobactam 3.375 GM in D5% in Water (Mini-Bag+) 100 ML IVPB SCH (09:38)
[2017-02-25] MEDS: Sennosides/Docusate Sodium TABLET PO SCH (09:39)
[2017-02-25] MEDS: Furosemide 20 MG/2 ML VIAL IVP SCH (09:39)
[2017-02-25] MEDS: amLODIPine 5 MG TABLET PO SCH (09:39)
[2017-02-25] MEDS: Finasteride 5 MG TABLET PO SCH (09:40)
[2017-02-25] MEDS: Aspirin Enteric Coated 325 MG Tablet PO SCH (09:40)
[2017-02-25 11:21] VITALS: BP 99/59
[2017-02-25] MEDS: predniSONE 20 MG TABLET PO SCH (13:02)
== END 2017-02-25 14:20 | DRG 189 ==
LOC: EMEROO 13:20 → 2ANU 13:20 → SUATTDRO 15:06 → 2ANU 15:39
PROVIDERS: ADMIT Internal Medicine; ATTEND Internal Medicine